=== PATIENT | male | born 1955 | race Hispanic/Latino ===

== ENCOUNTER 2020-04-16 20:00 | Inpatient (IN) | payer OTHER, SELFPAY ==
[2020-04-16] MEDS ORDERED: ONDANSETRON 4 MG/2 ML VIAL ONE ×2 (20:54→23:31)
[2020-04-16 20:56] LABS: Absolute Lymphocytes (CBC) 0.6 K/uL (0.7-4.9); Basophils % 0.4 % (0-1.3); Hematocrit 36.7 % (39.6-49.0); Lymphocytes % 10.7 % (15.3-44.8); MPV 8.7 fL (7.6-11.3); RBC Red Blood Cell Count 3.29 M/uL (4.33-5.43)
[2020-04-16 20:57] LABS: Protime INR 1.02
[2020-04-16 21:10] LABS: ALT/SGPT 89 U/L (12-78); AST/SGOT 83 U/L (15-37); Albumin 3.3 g/dL (3.4-5.0); Alkaline Phosphatase 161 U/L (45-117); BUN Blood Urea Nitrogen 9 mg/dL (7-18); Bicarbonate 20 mmol/L (21-32); Bilirubin Direct 0.7 mg/dL (0-0.2); Bilirubin Total 1.5 mg/dL (0.2-1.0); Glucose Level 80 mg/dL (74-106); Lipase 566 U/L (73-393); Magnesium 2.2 mg/dL (1.8-2.4); NT PRO-BNP 590 pg/mL (<125); Potassium 3.6 mmol/L (3.5-5.1); Protein, Total 7.6 g/dL (6.4-8.2); Sodium Level 131 mmol/L (136-145); Troponin (Emerg Dept Use Only) < 0.02 ng/mL (0.0-0.045)
--- NOTE | 2020-04-16 21:19 | RAD REPORT ---
EXAM DESCRIPTION: CT - Head Brain Wo Cont - 04/16/2020 9:12 pm CLINICAL HISTORY: AMS COMPARISON: No comparisons TECHNIQUE: Axial 5 mm thick images of the head were obtained without IV contrast. All CT scans are performed using dose optimization technique as appropriate and may include automated exposure control or mA/KV adjustment according to patient size. FINDINGS: No intracranial hemorrhage, mass, edema or shift of mid-line structures. No acute infarcti on changes seen. Atrophy changes are present prominent for the patient's age. Chronic ischemic change s are also seen. Ventricles are in proportion to volume loss. No cortical edema or sulcal effacement identified. Mastoid air cells and visualized portions of the paranasal sinuses are clear. No acute bony findings. IMPRESSION: No hemorrhage, mass or acute intracranial finding identifiable. Patient has atrophy and chronic ischemic changes that are advanced for age. Chronic ischemic change c an mask nonhemorrhagic CVA.
--- NOTE | 2020-04-16 21:20 | RAD REPORT ---
EXAM DESCRIPTION: RAD - Chest Single View - 04/16/2020 8:58 pm CLINICAL HISTORY: AMS, weakness, shortness of breath COMPARISON: August 2014 TECHNIQUE: AP portable chest image was obtained 04/16/2020 8:58 pm . FINDINGS: Lungs are clear. Heart and vasculature are normal. No measurable pleural effusion and no p neumothorax. No acute bony abnormality seen. No acute aortic findings suspected. IMPRESSION: No acute cardiopulmonary process. No significant change from comparison.
[2020-04-16 21:33] LABS: Blood Morphology Comment NOTED (NOT SEEN); Macrocytosis 1+; Platelet Estimate DECR; White Blood Cell Scan OK
[2020-04-16] MEDS ORDERED: PROMETHAZINE INJ 25 MG/ML AMP ONE (21:43)
[2020-04-16] MEDS ORDERED: NA CHLORIDE 0.9% 1,000 ML ONE ×2 (22:00→23:32)
[2020-04-16 22:10] LABS: Barbiturates NEGATIVE (NEGATIVE); Benzodiazepines NEGATIVE (NEGATIVE); Cocaine NEGATIVE (NEGATIVE); METHAMPHETAM NEGATIVE (NEGATIVE); Methadone NEGATIVE (NEGATIVE); Opiates NEGATIVE (NEGATIVE); Phencyclidine NEGATIVE (NEGATIVE); THC Cannibis NEGATIVE (NEGATIVE)
[2020-04-16 22:19] LABS: Urine Blood NEGATIVE (NEG); Urine Glucose NEGATIVE (NEG); Urine Protein NEGATIVE (NEG); Urine pH 6.5 (5.0-7.0)
[2020-04-16] MEDS ORDERED: LORazepam 2 MG/ML VIAL ONE (23:31)
[2020-04-16] MEDS ORDERED: THIAMINE 200 MG/2 ML INJ ONE (23:33)
[2020-04-16] MEDS ORDERED: MULTIVITAMINS 10 ML VIAL (INJ) IV ONE (23:33)
[2020-04-16] MEDS ORDERED: FOLIC ACID 5 MG/ML VIAL ONE (23:34)
--- NOTE | 2020-04-16 23:41 | ER ---
Nurse's Notes [facility] Name: Nikko Jaeger Age: 64 yrs Sex: Male : 1955 Arrival Date: 04/16/2020 Time: 20:03 Bed 5 Private MD: Diagnosis: Altered Mental Status;Alcohol Withdrawal Presentation: 04/16 20:20 Chief complaint: Sister: Noticed Sunday to come pick him up to bring him to the [employer] store. While he was walking he is holding onto the ash or to something. He was weak and a little disoriented. Yesterday, it has gotten worse, he is weaker, drowsy and very disoriented. He forgot that our mom and brother have been for years. He seems to have blurring of vision too. Orientation x 2 , person and place. Chief complaint: Patient states: I just feel very tired and very weak. Coronavirus screen: Client denies travel out of the [place] in the last 14 days. At this time, the client does not indicate any symptoms associated with coronavirus-19. Ebola Screen: Patient negative for fever greater than or equal to 101.5 degrees Fahrenheit, and additional compatible Ebola Virus Disease symptoms Patient denies exposure to infectious person. Patient denies travel to an Ebola-affected area in the 21 days before illness onset. No symptoms or risks identified at this time. Initial Sepsis Screen: Does the patient meet any 2 criteria? No. Patient's initial sepsis screen is negative. Does the patient have a suspected source of infection? No. Patient's initial sepsis screen is negative. Risk Assessment: Do you want to hurt yourself or someone else? Patient reports no desire to harm self or others. Onset of symptoms was April 14, 2020. 20:20 Method Of Arrival: Wheelchair ca1 20:20 Acuity: NELLIE 3 ca1 Triage Assessment: 20:25 General: Appears slender, unkempt, Behavior is drowsy. Pain: Denies pain. ca1 Historical: - Allergies: 20:25 No Known Allergies; ca1 - Home Meds: 20:25 None [Active]; ca1 - PMHx: 20:25 None; ca1 - PSHx: 20:25 None; ca1 - Immunization history:: Adult Immunizations not up to date. - Social history:: Smoking status: Patient reports the use of cigarette tobacco products, smokes one pack cigarettes per day. Screenin:56 Abuse screen: Denies threats or abuse. Nutritional screening: No deficits noted. ea Tuberculosis screening: No symptoms or risk factors identified. Fall Risk IV access (20 points). Assessment: 20:54 General: Appears uncomfortable, Behavior is appropriate for age. Pain: Denies pain. ea Neuro: Level of Consciousness is awake, alert, Oriented to person. Cardiovascular: Patient's skin is warm and dry. Respiratory: Airway is patent Respiratory effort is even, unlabored, Respiratory pattern is regular, symmetrical. GI: Parent/caregiver reports the patient having sister reports he has been having episodes of vomiting. Derm: Skin is thin, Skin is dry, Skin temperature is warm. 21:08 Reassessment: Pt taken cat scan. ea 21:45 Reassessment: Patient and/or family updated on plan of care and expected duration. Pain ea level reassessed. Pt returned from CT. Pt remains awake, alert and disoriented. Respirations even and unlabored, chest expansions even and symmetrical. 22:28 Reassessment: Patient and/or family updated on plan of care and expected duration. Pain ea level reassessed. Pt resting with eyes closed respirations even and unlabored. Chest expansions even and symmetrical. Sister at bedside. 23:38 Reassessment: Patient and/or family updated on plan of care and expected duration. Pain ea level reassessed. Pt resting with eyes closed, respirations even and unlabored, chest expansions even and unlabored. 23:52 Reassessment: Niyah (sister) [phone]. ea 04/17 00:50 Reassessment: Patient and/or family updated on plan of care and expected duration. Pain ea level reassessed. Pt resting with eyes closed, respirations even and unlabored. Chest expansions even and unlabored. 01:19 Reassessment: Report given to receiving nurse on second floor. ea 01:30 Reassessment: Patient and/or family updated on plan of care and expected duration. Pain ea level reassessed. Pt resting with eyes closed, respirations even and unlabored. Chest expansions even and symmetrical. Pt admitted to second floor, left ED via stretcher per tech. Pt tolerating well. Vital Signs: 04/16 20:20 BP 177 / 96; Pulse 71; Resp 15 S; Temp 97(TE); Pulse Ox 100% on R/A; Weight 63.5 kg ca1 (R); Height 5 ft. 6 in. (167.64 cm) (R); 22:29 BP 147 / 100; Pulse 71; Resp 18; Pulse Ox 100% ; ea 23:09 BP 137 / 98; Pulse 67; Resp 18; Pulse Ox 99% on R/A; ea 04/17 00:51 BP 157 / 88; Pulse 71; Resp 18; Pulse Ox 100% ; ea 04/16 20:20 Body Mass Index 22.60 (63.50 kg, 167.64 cm) ca1 ED Course: 04/16 20:03 Patient arrived in ED. cf2 20:25 Triage completed. ca1 20:26 Arm band placed on right wrist. ca1 20:28 Chema Dawn MD is Attending Physician. mh7 20:42 Faith Townsend RN is Primary Nurse. ea 20:55 Patient has correct armband on for positive identification. Placed in gown. Bed in low ea position. Call light in reach. Side rails up X2. Adult w/ patient. 20:55 EKG done, by ED staff, reviewed by Chema Dawn MD. Inserted saline lock: 20 gauge in ds4 right forearm, using aseptic technique. Blood collected. 21:41 Straight cath inserted, using sterile technique, 16 Fr. Specimen obtained. ds4 21:54 UDS Sent. ds4 23:39 Yordy Hughes is Hospitalizing Provider. 7 23:47 No provider procedures requiring assistance completed. Patient admitted, IV remains in ea place. Administered Medications: 20:44 Drug: Zofran (Ondansetron) 4 mg Route: IVP; Site: right antecubital; ea 22:00 Follow up: Response: No adverse reaction ea 21:40 Drug: Phenergan 12.5 mg Route: IVP; Site: right antecubital; ea 23:00 Follow up: Response: No adverse reaction ea 22:14 Drug: NS 0.9% 1000 ml Route: IV; Rate: 1000 ml; Site: right antecubital; ea 04/17 00:43 Follow up: Response: No adverse reaction; IV Status: Completed infusion; IV Intake: ea 1000ml 04/16 23:35 Drug: Banana Bag - (NS 0.9% 1000 ml, foLIC Acid 1 mg, Thiamine 100 mg, Multivitamin 1 ea amp) Route: IV; Rate: calculated rate; Site: right antecubital; 04/17 00:39 Follow up: Response: No adverse reaction; IV Status: Infusion continued upon admission ea 04/16 23:35 CANCELLED (Other Intervention Used): Ativan 1 mg IVP once 23:36 Drug: Zofran (Ondansetron) 4 mg Route: IVP; Site: right antecubital; ea 04/17 00:39 Follow up: Response: No adverse reaction ea 04/16 23:36 Drug: Ativan 2 mg Route: IVP; Site: right antecubital; ea 04/17 00:40 Follow up: Response: No adverse reaction ea Intake: 00:43 IV: 1000ml; Total: 1000ml. ea Outcome: 04/16 23:40 Decision to Hospitalize by Provider. mh7 04/17 00:38 Condition: stable ea Instructed on the need for admit. 01:18 Admitted to Med/surg accompanied by tech, room 231, with chart, Report called to ea Receiving nurse on second floor 01:27 Patient left the ED. rv Signatures: Kranthi Mendoza ds4 Faith Townsend RN Abad Ortiz ea, RN RN rv Acob, Cheryl RN Paz Collins2 Chema Dawn MD MD 7
--- NOTE | 2020-04-16 23:41 | EDPHYS ---
Physician Documentation [facility] Name: Nikko Jaeger Age: 64 yrs Sex: Male : 1955 Arrival Date: 04/16/2020 Time: 20:03 Bed 5 Private MD: ED Physician Chema Dawn HPI: 04/16 21:36 This 64 yrs old Male presents to ER via Wheelchair with complaints of Altered mh7 Mental Status, Vision Problem, Off Balance. 21:36 The patient presents with. mh7 21:36 The patient presents with confusion, disorientation, to time. Onset: The 7 symptoms/episode began/occurred 2 day(s) ago. Possible causes: unknown. Associated signs and symptoms: Pertinent positives: blurred vision, confusion, nausea, weakness, Pertinent negatives: abdominal pain, agitation, chest pain, combativeness, diaphoresis, diarrhea, dizziness, headache, lightheadedness, numbness, palpitations, seizure, shortness of breath, tingling, vertigo, vomiting. 21:38 Current symptoms: In the emergency department the patient's symptoms are unchanged from [facility] the initial presentation. Patient's baseline: Neuro: alert and fully oriented, Motor: no deficits, Ambulation: walks without assistance, Speech: normal. Historical: - Allergies: 20:25 No Known Allergies; ca1 - Home Meds: 20:25 None [Active]; ca1 - PMHx: 20:25 None; ca1 - PSHx: 20:25 None; ca1 - Immunization history:: Adult Immunizations not up to date. - Social history:: Smoking status: Patient reports the use of cigarette tobacco products, smokes one pack cigarettes per day. ROS: 21:38 Constitutional: Negative for fever, chills, and weight loss, ENT: Negative for injury, mh7 pain, and discharge, Neck: Negative for injury, pain, and swelling, Cardiovascular: Negative for chest pain, palpitations, and edema, Respiratory: Negative for shortness of breath, cough, wheezing, and pleuritic chest pain, Back: Negative for injury and pain, : Negative for injury, bleeding, discharge, and swelling, MS/Extremity: Negative for injury and deformity, Skin: Negative for injury, rash, and discoloration, Psych: Negative for depression, anxiety, suicide ideation, homicidal ideation, and hallucinations, Allergy/Immunology: Negative for hives, rash, and allergies, Endocrine: Negative for neck swelling, polydipsia, polyuria, polyphagia, and marked weight changes, Hematologic/Lymphatic: Negative for swollen nodes, abnormal bleeding, and unusual bruising. Exam: 21:38 Head/Face: Normocephalic, atraumatic. mh7 21:38 ENT: Nares patent. No nasal discharge, no septal abnormalities noted. Tympanic membranes are normal and external auditory canals are clear. Oropharynx with no redness, swelling, or masses, exudates, or evidence of obstruction, uvula midline. Mucous membranes moist. Neck: Trachea midline, no thyromegaly or masses palpated, and no cervical lymphadenopathy. Supple, full range of motion without nuchal rigidity, or vertebral point tenderness. No Meningismus. Chest/axilla: Normal chest wall appearance and motion. Nontender with no deformity. No lesions are appreciated. Cardiovascular: Regular rate and rhythm with a normal S1 and S2. No gallops, murmurs, or rubs. Normal PMI, no JVD. No pulse deficits. Respiratory: Lungs have equal breath sounds bilaterally, clear to auscultation and percussion. No rales, rhonchi or wheezes noted. No increased work of breathing, no retractions or nasal flaring. 21:38 Back: No spinal tenderness. No costovertebral tenderness. Full range of motion. 21:38 Skin: Warm, dry with normal turgor. Normal color with no rashes, no lesions, and no evidence of cellulitis. MS/ Extremity: Pulses equal, no cyanosis. Neurovascular intact. Full, normal range of motion. 21:38 Constitutional: The patient appears alert, awake, uncomfortable. 21:38 Eyes: Periorbital structures: appear normal, Pupils: pinpoint, bilaterally, Extraocular movements: intact throughout, Conjunctiva: normal, Corneas: are normal, Sclera: no appreciated abnormality, Lids and lashes: appear normal. 21:38 Abdomen/GI: Inspection: abdomen appears normal, Bowel sounds: normal, in all quadrants, Palpation: mild abdominal tenderness, in all quadrants, Rectal exam: the exam is deferred, because of patient request, Indicators: McBurney's point is not tender, Jansen's sign is negative, Rovsing's sign is negative, Obturator sign is negative, Psoas sign is negative, Liver: no appreciated palpable abnormalities, Hernia: not appreciated. 21:38 Skin: 21:38 Neuro: Orientation: to person, place, situation, Mentation: sleepy, Memory: is normal, Cranial nerves: grossly normal, Cerebellar function: is grossly normal, Motor: is normal, Sensation: is normal, Gait: not tested. seizure activity, is not displayed by the patient, Abnormal movements: there are no abnormal movements. 21:38 Psych: Behavior/mood is pleasant, cooperative, Affect is calm, Oriented to person, place, Patient has no thoughts/intents to harm self or others. Judgement / Insight is normal. Memory is normal. Delusions/hallucinations are not present. Vital Signs: 20:20 BP 177 / 96; Pulse 71; Resp 15 S; Temp 97(TE); Pulse Ox 100% on R/A; Weight 63.5 kg ca1 (R); Height 5 ft. 6 in. (167.64 cm) (R); 22:29 BP 147 / 100; Pulse 71; Resp 18; Pulse Ox 100% ; ea 23:09 BP 137 / 98; Pulse 67; Resp 18; Pulse Ox 99% on R/A; ea 04/17 00:51 BP 157 / 88; Pulse 71; Resp 18; Pulse Ox 100% ; ea 04/16 20:20 Body Mass Index 22.60 (63.50 kg, 167.64 cm) ca1 MDM: 04/16 20:40 Patient medically screened. [facility] 23:38 Differential Diagnosis: CVA, electrolyte abnormality, alcohol intoxication, 7 hypoglycemia, intracranial bleed, overdose, pneumonia, sepsis, UTI, volume depletion, Alcohol withdrawal. Data reviewed: vital signs, nurses notes, lab test result(s), cardiac enzymes, CBC, drug level(s), electrolytes, urinalysis, urine drug screen, EKG, radiologic studies, CT scan, plain films. Data interpreted: Pulse oximetry: on room air is 99 %. Interpretation: normal. Counseling: I had a detailed discussion with the patient and/or guardian regarding: the historical points, exam findings, and any diagnostic results supporting the discharge/admit diagnosis, the presence of at least one elevated blood pressure reading (>120/80) during this emergency department visit, lab results, radiology results, the need for further work-up and treatment in the hospital. Response to treatment: the patient's symptoms have mildly improved after treatment. 04/16 20:42 Order name: Basic Metabolic Panel [facility] 04/16 20:42 Order name: CBC with Diff [facility] 04/16 20:42 Order name: LFT's [facility] 04/16 20:42 Order name: Magnesium [facility] 04/16 20:42 Order name: NT PRO-BNP [facility] 04/16 20:42 Order name: PT-INR [facility] 04/16 20:42 Order name: Troponin (emerg Dept Use Only) [facility] 04/16 20:42 Order name: UDS [facility] 04/16 20:42 Order name: ETOH Level [facility] 04/16 20:42 Order name: Lipase [facility] 04/16 20:43 Order name: Acetaminophen [facility] 04/16 20:43 Order name: Salicylate [facility] 04/16 21:11 Order name: Basic Metabolic Panel; Complete Time: 21:34 EDMS 04/16 23:36 Interpretation: GLUC 80. [facility] 04/16 21:11 Order name: Liver (Hepatic) Function; Complete Time: 21:34 EDMS 04/16 20:42 Order name: XRAY Chest (1 view) [facility] 04/16 21:11 Order name: Troponin (Emerg Dept Use Only); Complete Time: 21:34 EDMS 04/16 21:11 Order name: NT PRO-BNP; Complete Time: 21:34 EDMS 04/16 21:11 Order name: Acetaminophen Level; Complete Time: 21:34 EDMS 04/16 21:11 Order name: Magnesium; Complete Time: 21:34 EDMS 04/16 21:11 Order name: Lipase; Complete Time: 21:34 EDMS 04/16 21:17 Order name: Protime (+INR); Complete Time: 21:34 EDMS 04/16 21:20 Order name: CBC with Automated Diff; Complete Time: 21:34 EDMS 04/16 21:33 Order name: CBC Smear Scan; Complete Time: 21:34 EDMS 04/16 21:35 Order name: AMMONIA [facility] 04/16 21:44 Order name: Alcohol Serum/Plasma; Complete Time: 22:28 EDMS 04/16 21:53 Order name: Urine Dipstick--Ancillary (enter results) 4 04/16 22:05 Order name: Salicylates Level; Complete Time: 22:28 [facility] 04/16 22:10 Order name: Urine Drug Screen; Complete Time: 22:28 [facility] 04/16 22:19 Order name: Urine Dipstick-Ancillary; Complete Time: 22:28 [facility] 04/16 22:48 Order name: Ammonia; Complete Time: 22:59 [facility] 04/16 20:42 Order name: EKG; Complete Time: 20:43 [facility] 04/16 20:42 Order name: Cardiac monitoring; Complete Time: 20:53 [facility] 04/16 20:42 Order name: EKG - Nurse/Tech; Complete Time: 20:53 [facility] 04/16 20:42 Order name: IV Saline Lock; Complete Time: 20:53 [facility] 04/16 20:42 Order name: Labs collected and sent; Complete Time: 20:53 [facility] 04/16 20:42 Order name: O2 Per Protocol; Complete Time: 20:53 [facility] 04/16 20:42 Order name: O2 Sat Monitoring; Complete Time: 20:53 [facility] 04/16 20:42 Order name: Urine Dipstick-Ancillary (obtain specimen); Complete Time: 21:53 [facility] 04/16 20:42 Order name: CT Head Brain wo Cont [facility] 04/16 21:21 Order name: CT; Complete Time: 21:34 [facility] 04/16 21:21 Order name: RAD; Complete Time: 21:34 [facility] 04/16 21:35 Order name: CT Abd/Pelvis - IV Contrast Only 7 Administered Medications: 20:44 Drug: Zofran (Ondansetron) 4 mg Route: IVP; Site: right antecubital; ea 22:00 Follow up: Response: No adverse reaction ea 21:40 Drug: Phenergan 12.5 mg Route: IVP; Site: right antecubital; ea 23:00 Follow up: Response: No adverse reaction ea 22:14 Drug: NS 0.9% 1000 ml Route: IV; Rate: 1000 ml; Site: right antecubital; ea 04/17 00:43 Follow up: Response: No adverse reaction; IV Status: Completed infusion; IV Intake: ea 1000ml 04/16 23:35 Drug: Banana Bag - (NS 0.9% 1000 ml, foLIC Acid 1 mg, Thiamine 100 mg, Multivitamin 1 ea amp) Route: IV; Rate: calculated rate; Site: right antecubital; 04/17 00:39 Follow up: Response: No adverse reaction; IV Status: Infusion continued upon admission ea 04/16 23:35 CANCELLED (Other Intervention Used): Ativan 1 mg IVP once ea 23:36 Drug: Zofran (Ondansetron) 4 mg Route: IVP; Site: right antecubital; ea 04/17 00:39 Follow up: Response: No adverse reaction ea 04/16 23:36 Drug: Ativan 2 mg Route: IVP; Site: right antecubital; ea 04/17 00:40 Follow up: Response: No adverse reaction Disposition: 06:23 Co-signature as Attending Physician, Chema Dawn MD. mh7 Disposition: 04/16/20 23:40 Hospitalization ordered by Yordy Hughes for Inpatient Admission. Preliminary diagnosis are Altered Mental Status, Alcohol Withdrawal. - Bed requested for Telemetry/MedSurg (Inpatient). - Status is Inpatient Admission. rv - Condition is Stable. - Problem is new. - Symptoms have improved. Signatures: Dispatcher [employer] Leonor Altamiraon RN RN Faith Townsend RN RN ea Vicente, Ronaldo, RN RN Leyla Parry RN RN [facility] Chema Dawn MD MD mh7 Corrections: (The following items were deleted from the chart) 04/16 23:35 23:23 Ativan 1 mg IVP once ordered. [facility] 23:35 23:35 Ativan 1 mg IVP once ordered. [facility] 04/17 00:52 04/16 23:40 Hospitalization Ordered by Yordy Hughes for Inpatient Admission. cg Preliminary diagnosis is Altered Mental Status; Alcohol Withdrawal. Bed requested for Telemetry/MedSurg (Inpatient). Status is Inpatient Admission. Condition is Stable. Problem is new. Symptoms have improved. [facility] 04/17 00:53 00:52 04/16/2020 23:40 Hospitalization Ordered by Yordy Hughes for Inpatient cg Admission. Preliminary diagnosis is Altered Mental Status; Alcohol Withdrawal. Bed requested for Telemetry/MedSurg (Inpatient). Status is Inpatient Admission. Condition is Stable. Problem is new. Symptoms have improved. cg 01:27 00:53 04/16/2020 23:40 Hospitalization Ordered by Yordy Hughes for Inpatient rv Admission. Preliminary diagnosis is Altered Mental Status; Alcohol Withdrawal. Bed requested for Telemetry/MedSurg (Inpatient). Status is Inpatient Admission. Condition is Stable. Problem is new. Symptoms have improved. cg
--- NOTE | 2020-04-17 00:29 | P.HP ---
Certification for Inpatient Patient admitted to: Inpatient With expected LOS: >2 Midnights Practitioner: I am a practitioner with admitting privileges, knowledge of patient current condition, hospital course, and medical plan of care. Services: Services provided to patient in accordance with Admission requirements found in Title 42 Section 412.3 of the Code of Federal Regulations Patient History Date of Service: 04/17/20 Reason for admission: Hallucinations History of Present Illness: 64-year-old gentleman who is a known alcoholic was brought to the emergency department by the sister with her reports of confusion, visual impairment and hallucinations. According to the sister patient drinks alcohol every day, but over the past couple of days have not had access to alcohol due to difficulty ambulating and visual problems. She noted patient was more confused today, and hallucinating about seeing his mum. Sister brought him to the emergency department for evaluation. She also reports that she noted a squint in his eyes and patient have had difficulty reaching out for objects. His alcohol level in the ED is 14. CT head shows no acute change. EKG demonstrated sinus rhythm. He has mild hyponatremia, elevated lipase and elevated liver enzymes. Patient had an episode of vomiting during my examination in the ED. Patient is admitted for further management of alcohol withdrawal. Allergies No Known Allergies Allergy (Verified 08/05/14 14:57) Home Medications: Doxylamine Succinate [Sleep Aid] 25 mg PO DAILY 08/05/14 Hydrocodone 7.5/APAP 325 [[place] 7.5/325 mg*] 1 tab PO Q4H PRN #50 tab 08/15/14 Iron/FA/Vit B-Com W/C [Hemocyte Plus*] 1 tab PO DAILY WITH BREAKFAST #30 tab 08/15/14 Rivaroxaban [Xarelto*] 10 mg PO DAILY #25 tablet 08/16/14 - Past Medical/Surgical History Diabetic: No -: Chronic alcoholism - Family History Mother -: Heart disease, Hypertension, Diabetes - Social History Alcohol use: Yes CD- Drugs: No Caffeine use: Yes Review of Systems is unable to be obtained (Due to altered mental status.) Physical Examination - Physical Exam General: Other (Somnolent) HEENT: Normocephalic, Mucous membr. moist/pink, Sclerae nonicteric Neck: Supple, JVD not distended Respiratory: Clear to auscultation bilaterally, Normal air movement Cardiovascular: No edema, Regular rate/rhythm, Normal S1 S2 Gastrointestinal: Normal bowel sounds, Soft and benign, No tenderness Musculoskeletal: No swelling, No erythema Integumentary: No rashes, No tenderness/swelling - Studies Laboratory Data (last 24 hrs) 04/16/20 20:37: PT 12.0, INR 1.02 04/16/20 20:37: WBC 5.9, Hgb 12.7 L, Hct 36.7 L, Plt Count 144 L 04/16/20 20:37: Sodium 131 L, Potassium 3.6, BUN 9, Creatinine 0.75, Glucose 80, Magnesium 2.2, Total Bilirubin 1.5 H, AST 83 H, ALT 89 H, Alkaline Phosphatase 161 H, Lipase 566 H Assessment and Plan - Problems (Diagnosis) (1) Alcohol withdrawal syndrome Current Visit: Yes Status: Acute (2) Wernicke encephalopathy syndrome Current Visit: Yes Status: Acute (3) Acute pancreatitis Current Visit: Yes Status: Acute - Plan Admit to the medical floor. Supportive measures with IV hydration, antiemetics. Initiate CIWA. Replete electrolytes-normal saline for hyponatremia. IV thiamine. Ataxia and a squint could be secondary to Wernicke syndrome. Obtain MRI of the brain to assess for acute CVA. - Advance Directives Does patient have a Living Will: No Does patient have a Durable POA for Healthcare: No
[2020-04-17] MEDS: LORazepam 2 MG/ML VIAL IV SCH ×6 (01:33→21:34)
[2020-04-17] MEDS ORDERED: FLUMAZENIL 0.1 MG/ML (5 mL VIAL) IV PRN (01:33)
[2020-04-17] MEDS ORDERED: ONDANSETRON 4 MG/2 ML VIAL IV PRN (01:33)
[2020-04-17] MEDS ORDERED: LORazepam 2 MG/ML VIAL IV PRN (01:33)
[2020-04-17 02:07] VITALS: BMI 18.6
[2020-04-17 02:57] LABS: Phosphorus 2.8 mg/dL (2.5-4.9)
--- NOTE | 2020-04-17 07:18 | EKG ---
Test Date: 2020-04-16 Test Time: 20:47:24 Process Checker: ANA ROSA MEASUREMENT RESULTS: Intervals: Rate: 69 [place]: 146 QRSD: 76 QT: 490 QTc: 525 [place]: P: 45 [place]: 146 QRS: 53 T: 33 INTERPRETIVE STATEMENTS: Normal sinus rhythm Prolonged QT Abnormal ECG Compared to ECG 03/05/2001 14:49:00 Prolonged QT interval now present Left ventricular hypertrophy no longer present Electronically Signed On 04-17-20 07:17:42 CDT by Harman Hoff
--- NOTE | 2020-04-17 09:01 | P.PN ---
Date of Service: 04/17/20 Patient seen and examined. He is a little bit more awake than when I saw him in the ED. Nurse reports some agitation this morning and had to be him a dose of Ativan. Continue IV hydration, IV thiamine and CIWA protocol.
[2020-04-17] MEDS: FOLIC ACID 1 MG, MULTIVITAMINS INJ 10 ML, THIAMINE HCL 100 MG in NA CHLORIDE 0.9% 1,000 ML IV SCH (09:47)
[2020-04-17] MEDS: ENOXAPARIN 40 MG/0.4 ML SQ SCH (09:47)
[2020-04-17] MEDS ORDERED: D50W 25 GM/50 ML SYRINGE/VIAL IV PRN ×2 (12:40→12:41)
[2020-04-17] MEDS ORDERED: GLUCAGON 1 MG/VIAL IV PRN (12:41)
[2020-04-17] MEDS ORDERED: D50W 25 GM/50 ML SYRINGE/VIAL IV ONE (12:57)
[2020-04-17] MEDS: D5 0.45 NS 1,000 ML IV SCH (18:12)
[2020-04-18] MEDS: LORazepam 2 MG/ML VIAL IV SCH ×2 (01:33→06:02)
[2020-04-18 05:25] LABS: Absolute Lymphocytes (CBC) 0.7 K/uL (0.7-4.9); Basophils % 0.3 % (0-1.3); Hematocrit 34.4 % (39.6-49.0); MPV 8.9 fL (7.6-11.3); RBC Red Blood Cell Count 3.08 M/uL (4.33-5.43)
[2020-04-18 05:45] LABS: ALT/SGPT 61 U/L (12-78); AST/SGOT 51 U/L (15-37); Albumin 2.6 g/dL (3.4-5.0); Alkaline Phosphatase 122 U/L (45-117); BUN Blood Urea Nitrogen 6 mg/dL (7-18); Bicarbonate 24 mmol/L (21-32); Bilirubin Total 1.3 mg/dL (0.2-1.0); Glucose Level 96 mg/dL (74-106); HDL Cholesterol 74 mg/dL (40-60); LDL Cholesterol, Calculated 51 (<130); Phosphorus 2.2 mg/dL (2.5-4.9); Protein, Total 6.1 g/dL (6.4-8.2); Sodium Level 134 mmol/L (136-145)
[2020-04-18 05:51] LABS: Potassium 2.8 mmol/L (3.5-5.1)
[2020-04-18] MEDS: D5 0.45 NS 1,000 ML IV SCH ×3 (06:01→23:35)
[2020-04-18] MEDS: KCL 20 MEQ/100 mL IVPB 20 MEQ/100 ML BAG IV SCH ×3 (06:15→23:34)
[2020-04-18] MEDS: ENOXAPARIN 40 MG/0.4 ML SQ SCH (07:37)
[2020-04-18] MEDS ORDERED: LORazepam 2 MG/ML VIAL IV SCH (08:03)
--- NOTE | 2020-04-18 08:09 | P.PN ---
Subjective Date of Service: 04/18/20 Chief Complaint: Hallucinations Subjective: No new changes Patient remain somnolent. He has been getting Ativan for alcohol withdrawal. Physical Examination - Vital Signs Temperature: 96.9 F Blood Pressure: 146/70 Pulse: 58 Respirations: 20 Pulse Ox (%): 98 - Physical Exam General: In no apparent distress, Other (Somnolent) HEENT: PERRLA, EOMI, Sclerae nonicteric Neck: Supple Respiratory: Clear to auscultation bilaterally, Normal air movement Cardiovascular: No edema, Regular rate/rhythm, Normal S1 S2 Gastrointestinal: Normal bowel sounds, Soft and benign, No tenderness Musculoskeletal: No swelling, No erythema Neurological: Other (Nonfocal) Assessment And Plan - Current Problems (Diagnosis) (1) Alcohol withdrawal syndrome Current Visit: Yes Status: Acute (2) Wernicke encephalopathy syndrome Current Visit: Yes Status: Acute (3) Acute pancreatitis Current Visit: Yes Status: Acute - Plan Continue supportive measures with IV hydration, antiemetics. CIWA. Continue normal saline for hyponatremia. IV thiamine daily for 2 days. Reduce Ativan dose due to somnolence Ataxia and a squint could be secondary to Wernicke syndrome. Obtain MRI of the brain to assess for acute CVA in am.
[2020-04-18] MEDS ORDERED: POTASSIUM CL 40 MEQ in NA CHLORIDE 0.9% 500 ML IV SCH (09:00)
[2020-04-18] MEDS ORDERED: POTASSIUM PHOS IN 0.9 % NACL 15 MMOL/250 ML BAG IV ONE (10:00)
[2020-04-18] MEDS: FOLIC ACID 1 MG, MULTIVITAMINS INJ 10 ML, THIAMINE HCL 100 MG in NA CHLORIDE 0.9% 1,000 ML IV SCH (12:01)
[2020-04-18 20:58] LABS: Phosphorus 2.2 mg/dL (2.5-4.9); Potassium 3.3 mmol/L (3.5-5.1)
[2020-04-18] MEDS: LORazepam 2 MG/ML VIAL IV PRN (23:37)
[2020-04-19] MEDS ORDERED: LORazepam 2 MG/ML VIAL IV SCH ×2 (01:00)
[2020-04-19] MEDS: KCL 20 MEQ/100 mL IVPB 20 MEQ/100 ML BAG IV SCH (02:38)
[2020-04-19] MEDS: LORazepam 2 MG/ML VIAL IV PRN (03:44)
[2020-04-19 04:47] LABS: BUN Blood Urea Nitrogen 2 mg/dL (7-18); Bicarbonate 24 mmol/L (21-32); Glucose Level 101 mg/dL (74-106); Phosphorus 1.7 mg/dL (2.5-4.9); Potassium 3.3 mmol/L (3.5-5.1); Sodium Level 137 mmol/L (136-145)
[2020-04-19] MEDS ORDERED: POTASSIUM PHOS IN 0.9 % NACL 15 MMOL/250 ML BAG IV ONE (07:30)
[2020-04-19] MEDS: ENOXAPARIN 40 MG/0.4 ML SQ SCH (08:17)
[2020-04-19] MEDS: FOLIC ACID 1 MG, MULTIVITAMINS INJ 10 ML, THIAMINE HCL 100 MG in NA CHLORIDE 0.9% 1,000 ML IV SCH (09:00)
--- NOTE | 2020-04-19 12:40 | RAD REPORT ---
EXAM DESCRIPTION: CT - Abdomen Pelvis W Contrast - 04/16/2020 10:06 pm CLINICAL HISTORY: NAUSEA / VOMITING COMPARISON: None. TECHNIQUE: CT ABDOMEN PELVIS WITH IV CONTRAST on 04/16/2020 9:35 PM CDT This exam was performed according to our departmental dose-optimization program, which includes autom ated exposure control, adjustment of the mA and/or kV according to patient size and/or use of iterati ve reconstruction technique. FINDINGS: Lower lungs are clear. Abdomen: The liver is normal in appearance. There is no biliary dilatation. Gallbladder is normal in appearance. The pancreas and spleen are normal in appearance. The adrenal glands and kidneys are unre markable. Abdominal aorta is normal in course and caliber without aneurysm. There is no free air. There is no r etroperitoneal adenopathy. Pelvis: There is no bowel obstruction. Urinary bladder is unremarkable. There is no free fluid. Appen sony is not well seen. Skeleton: There are no acute osseous findings. No suspicious bony lesions. IMPRESSION: No definite acute process. Electronically signed by: Quirino Mason MD 04/16/2020 10:24 PM CDT Due to temporary technical issues with the PACS/Fluency reporting system, reports are being signed by the in house radiologist without review as a courtesy to ensure prompt reporting. The interpreting r adiologist is fully responsible for the content of the report.
--- NOTE | 2020-04-19 12:58 | P.PN ---
Subjective Date of Service: 04/19/20 Primary Care Provider: unknown Chief Complaint: Hallucinations Subjective: Other (Patient stable this time.) Physical Examination - Vital Signs Temperature: 97.1 F Blood Pressure: 139/67 Pulse: 59 Respirations: 18 Pulse Ox (%): 97 - Physical Exam General: Alert, Cooperative HEENT: Atraumatic Neck: Supple Respiratory: Clear to auscultation bilaterally, Normal air movement Cardiovascular: Normal pulses, Regular rate/rhythm Musculoskeletal: Other (Muscle wasting to the upper/lower extremities) Neurological: Normal speech, Normal strength at 5/5 x4 extr, Normal tone, Normal affect - Studies Medications List Reviewed: Yes Assessment & Plan Discharge Plan: Home Plan to discharge in: 48 Hours Physician Review Additional Text: Impression: Ataxia likely related to Alcohol withdrawal syndrome complicated with suspected worn acute encephalopathy Acute pancreatitis Moderate protein calorie malnutrition Plan: Ataxia likely related to Alcohol withdrawal syndrome complicated with suspected Wernicke encephalopathy: Continue with Ativan as needed. Continue monitor closely. Will have physical therapy and occupational therapy evaluate ambulation. Continue to replace electrolytes. Will discuss with Neurology. MRI pending to further evaluate. Patient will need to be able to ambulate prior to discharge. Patient with high risk fall. Will discuss with physical therapy. Await recommendations by Neurology. Acute pancreatitis: This appears resolved. Moderate protein calorie malnutrition: Will have dietary assess daily needs. Encourage oral intake. Time Spent Managing Pts Care (In Minutes): 55
--- NOTE | 2020-04-19 14:58 | RAD REPORT ---
EXAM DESCRIPTION: MRI - Brain Wo Cont - 04/19/2020 2:35 pm CLINICAL HISTORY: Ataxia rule out CVA., confusion, transient alteration of awareness COMPARISON: Head Brain Wo Cont dated 04/16/2020 TECHNIQUE: Sagittal T1-weighted images were obtained along with axial PD, heavily T2-weighted and T2 -FLAIR images. Axial DWI and ADC mapping sequences were also obtained along with coronal heavily T2-w eighted images. FINDINGS: No intracranial hemorrhage, mass or acute infarction. There is no edema or shift of midlin e structures. No extra-axial fluid collections. Larsen-matter/white matter junction is preserved. Signa l voids are seen as a normal finding in the major intracranial vessels. Patient has mild to moderate atrophy. Ventricles are in proportion. Chronic ischemic changes are mild. No globe or orbital content abnormality. Mastoid air cells and paranasal sinuses are clear. Exam has motion degradation limitations. Multiple sequences repeated. Exam is still considered diagno stic quality. IMPRESSION: No acute infarction. No hemorrhage, mass or acute intracranial finding. Atrophy and chronic ischemic changes are present. Ventricles are in proportion to volume loss.
[2020-04-19 16:36] LABS: Phosphorus 2.8 mg/dL (2.5-4.9); Potassium 3.6 mmol/L (3.5-5.1)
[2020-04-19] MEDS ORDERED: POTASSIUM CL SA 10 MEQ TAB PO ONE (17:49)
[2020-04-19] MEDS: ENSURE ENLIVE 237 ML CAN PO SCH (21:00)
--- NOTE | 2020-04-19 22:31 | CON ---
Reason For Consultation: Consultation called because of alcohol withdrawal. History Of Present Illness: Mr. Jaeger is a 64-year-old, right-handed, patient with long- standing heavy alcohol abuse with significant gait ataxia and multiple hospital admissions with alcoh ol related symptoms. The patient was brought in by his sister because of worsening unsteady gait and diffuse weakness with drowsiness. He also had blurred vision and was not fully oriented. Symptoms had worsened as mentioned over perhaps several weeks. In [facility], his head CT scan and s ubsequent brain MRI were remarkable for chronic atrophy more than expected for age with ventricular s ize increased in proportion. Blood work showed normal white blood cell count with a slightly decreas ed hemoglobin of 11.9, platelets decreased to 124. Coagulation panel is unremarkable. Chemistries s howed low potassium of 3.3, low phosphorus of 1.7, low calcium of 7.6. His liver function studies sh ow elevated alkaline phosphatase 122, elevated AST at , total bilirubin elevated to 1.3, HD L cholesterol was 74, LDL cholesterol 51, glucose ranged from 84 to 106 and urinalysis was negative. His urine toxicology screen was positive for alcohol elevated to 14 with normal range of less than 1 0. Otherwise, his urine drug screen was negative. He has hepatitis panel pending and his COVID-19 t est is negative. He was treated with alcohol withdrawal prophylaxis including thiamine, folic acid, and benzodiazepine s along with aspirin and Lovenox for DVT prophylaxis. Since hospitalization, the patient had no sign ificant tachycardia or tachypnea and no fevers and no seizures. Past Medical History: As indicated. Allergies: NO KNOWN DRUG ALLERGIES. Home Medications: None. Past Surgical History: None. Family History: Noncontributory. Social History: Smokes pack cigarettes daily and drinks alcohol significant amounts daily. Review of Systems: As mentioned, difficulty with gait, coordination. He is disoriented and confused and not able to giv e a reliable review of systems. Physical Examination: Vital Signs: Blood pressure 132/76, pulse 69, respiratory rate 18, temperature 97.9, oxygen saturati on 99% on room air. Weight 150 pounds, height 5 feet 6 inches, BMI 18.6. NEUROLOGIC: The patient appears cachectic with significant muscle wasting in all extremities. He is otherwise slow to respond to communication, but was oriented to himself and place and did follow com mands appropriately. Cranial nerves show mild nystagmus on [id number] eye movement. He did not [place] ophthalmoplegia. Cranial nerves otherwise show no focal deficits. Motor examination has di ffuse weakness in upper and lower extremities, 5/5 strength proximally and distally. Sensory examina tion, decreased light touch, temperature in stocking-glove fashion. Reflexes depressed in the upper and lower extremities. Coordination, mild dysmetria noted in the upper and lower extremities. In te janice of his gait, he was evaluated by physical therapy. He did ambulate 20 feet with moderate assista nce using a rolling walker. Assessment: Mr. Jaeger is a 64-year-old patient with longstanding chronic heavy alcohol abuse, dif fuse brain atrophy, which is likely a contributing factor to his gait ataxia. He also is malnourishe d and anemic with electrolyte derangements and liver dysfunction. His ammonia level was low at 10. Please note that on admission, his AST was elevated at 83, ALT , alkaline phosphate is 161. Beta nitrate peptide was 590. After he was hydrated, those numbers improved. Also please note, hi s total bilirubin was elevated to 1.5, direct bilirubin 2.7 and those improve with hydration. Plan: The patient should be kept on thiamine, folic acid, alcohol withdrawal. He will be served bes t by being enrolled in an alcohol cessation program. He was advised to strongly stop consuming alcoh ol. He should use a walker while ambulating due to his high risk of falling. He has no resources and may not qualify for inpatient rehabilitation or custodial. The patient 's family may be required to assist in in terms of his ability to mobilize and take care of himself. He may be discharged to the care of his family. MARILIA/CONCHIS Voice ID: [id number] Report ID: [id number]
[2020-04-20 05:45] LABS: BUN Blood Urea Nitrogen 1 mg/dL (7-18); Bicarbonate 25 mmol/L (21-32); Glucose Level 87 mg/dL (74-106); Magnesium 1.8 mg/dL (1.8-2.4); Potassium 3.8 mmol/L (3.5-5.1); Sodium Level 136 mmol/L (136-145)
[2020-04-20] MEDS ORDERED: MAGNESIUM SULFATE 1 gm IVPB 1 GM/100 ML BAG IV ONE (07:30)
[2020-04-20] MEDS ORDERED: POTASSIUM 25 MEQ EFFERV TAB PO ONE (09:00)
[2020-04-20] MEDS: ASPIRIN EC 81 MG TAB PO SCH (09:58)
[2020-04-20] MEDS: THIAMINE HCL 100 MG TABLET PO SCH (09:58)
[2020-04-20] MEDS: ENSURE ENLIVE 237 ML CAN PO SCH ×2 (09:58→20:33)
[2020-04-20] MEDS: ENOXAPARIN 40 MG/0.4 ML SQ SCH (09:58)
[2020-04-20] MEDS: FOLIC ACID 1 MG TABLET PO SCH (09:58)
--- NOTE | 2020-04-20 13:58 | P.PN ---
Subjective Date of Service: 04/20/20 Primary Care Provider: unknown Chief Complaint: Hallucinations Subjective: Other (Patient more alert today. Still with some difficulty with ambulation noted by physical therapy.) Physical Examination - Vital Signs Temperature: 97 F Blood Pressure: 103/64 Pulse: 82 Respirations: 18 Pulse Ox (%): 98 - Physical Exam General: Alert HEENT: Atraumatic Neck: Supple Respiratory: Clear to auscultation bilaterally, Normal air movement Cardiovascular: Normal pulses, Regular rate/rhythm Neurological: Other (Still noticeable difficulty with ambulation.) - Studies Medications List Reviewed: Yes Assessment & Plan Discharge Plan: Home Plan to discharge in: 48 Hours Physician Review Additional Text: Impression: Ataxia likely related to Alcohol withdrawal syndrome complicated with suspected worn acute encephalopathy and noted brain atrophy Acute pancreatitis Moderate protein calorie malnutrition Plan: Ataxia likely related to Alcohol withdrawal syndrome complicated with suspected Wernicke encephalopathy and noted brain atrophy: Continue with Ativan as needed. Continue with thiamine and folic acid. Case discussed with Neurology. Neurology recommends alcohol cessation in the future. This was discussed in detail with the patient. It is unclear whether he will comply with alcohol cessation. Case also discuss with sister who looks after him. She mentioned that patient did go to alcohol rehab in the past. Will continue to encourage this. Continue to work with physical therapy. Patient still unsteady with his gait. Once the patient is more able and decrease fall risk is noted then will consider discharge. This will likely occur in the next 48 hr. Continue to monitor closely. Will have social Work work on possible options of outpatient care at discharge. Acute pancreatitis: This appears resolved. Moderate protein calorie malnutrition: Will have dietary assess daily needs. Encourage oral intake. Time Spent Managing Pts Care (In Minutes): 55
[2020-04-21 05:21] LABS: BUN Blood Urea Nitrogen 4 mg/dL (7-18); Bicarbonate 27 mmol/L (21-32); Glucose Level 88 mg/dL (74-106); Magnesium 2.2 mg/dL (1.8-2.4); Potassium 3.7 mmol/L (3.5-5.1); Sodium Level 138 mmol/L (136-145)
[2020-04-21] MEDS: THIAMINE HCL 100 MG TABLET PO SCH (08:04)
[2020-04-21] MEDS: ASPIRIN EC 81 MG TAB PO SCH (08:04)
[2020-04-21] MEDS: FOLIC ACID 1 MG TABLET PO SCH (08:04)
[2020-04-21] MEDS: ENOXAPARIN 40 MG/0.4 ML SQ SCH (08:05)
[2020-04-21] MEDS: ENSURE ENLIVE 237 ML CAN PO SCH (08:08)
[2020-04-21] MEDS ORDERED: POTASSIUM 25 MEQ EFFERV TAB PO ONE (09:00)
[2020-04-21 10:53] VITALS: O2SAT 96
[2020-04-21 12:53] VITALS: BP 102/61; TEMP 97
--- NOTE | 2020-04-21 12:58 | P.DS ---
Admission Date: 04/17/20 Discharge Date: 04/21/20 Primary Care Provider: unknown Disposition: ROUTINE DISCHARGE Discharge Condition: GOOD Reason for Admission: Hallucinations Consultations: Neurology-Dr. Moody Procedures: CT Brain: FINDINGS: No intracranial hemorrhage, mass, edema or shift of mid-line structures. No acute infarction changes seen. Atrophy changes are present prominent for the patient's age. Chronic ischemic changes are also seen. Ventricles are in proportion to volume loss. No cortical edema or sulcal effacement identified. Mastoid air cells and visualized portions of the paranasal sinuses are clear. No acute bony findings. IMPRESSION: No hemorrhage, mass or acute intracranial finding identifiable. Patient has atrophy and chronic ischemic changes that are advanced for age. Chronic ischemic change can mask nonhemorrhagic CVA. MRI Brain: FINDINGS: No intracranial hemorrhage, mass or acute infarction. There is no edema or shift of midline structures. No extra-axial fluid collections. Larsen- matter/white matter junction is preserved. Signal voids are seen as a normal finding in the major intracranial vessels. Patient has mild to moderate atrophy. Ventricles are in proportion. Chronic ischemic changes are mild. No globe or orbital content abnormality. Mastoid air cells and paranasal sinuses are clear. Exam has motion degradation limitations. Multiple sequences repeated. Exam is still considered diagnostic quality. IMPRESSION: No acute infarction. No hemorrhage, mass or acute intracranial finding. Atrophy and chronic ischemic changes are present. Ventricles are in proportion to volume loss. CT scan: FINDINGS: Lower lungs are clear. Abdomen: The liver is normal in appearance. There is no biliary dilatation. Gallbladder is normal in appearance. The pancreas and spleen are normal in appearance. The adrenal glands and kidneys are unremarkable. Abdominal aorta is normal in course and caliber without aneurysm. There is no free air. There is no retroperitoneal adenopathy. Pelvis: There is no bowel obstruction. Urinary bladder is unremarkable. There is no free fluid. Appendix is not well seen. Skeleton: There are no acute osseous findings. No suspicious bony lesions. IMPRESSION: No definite acute process. Medical Problem List: Ataxia likely related to Alcohol withdrawal syndrome complicated with suspected Wernicke encephalopathy and noted brain atrophy Acute pancreatitis, resolved likely alcohol related Moderate protein calorie malnutrition Anemia of chronic disease Brief History of Present Illness: 64-year-old male with history of alcohol abuse. Patient presented with multiple symptoms including ataxia. Patient has had multiple admissions for alcohol-related symptoms. The patient was brought in by the sister due to worse jaymie gait and increased drowsiness. Hospital Course: Patient presented with Ataxia likely related to Alcohol withdrawal syndrome complicated with suspected Wernicke encephalopathy and noted brain atrophy. The patient was seen and evaluated by Neurology. MRI showed no acute stroke. No hemorrhage noted. No mass or significant abnormal intracranial finding. Atrophy and chronic ischemic changes noted. Neurology suspects this is related to his alcohol abuse. Physical therapy worked with the patient. Patient requires a great deal of assistance. Physical therapy has made meet recommendations. Case discussed in detail with sister who plans to take care of the patient. Patient will be discharged home with the sister. Physical therapy will work with the sister to help with exercises. Patient would benefit with outpatient physical therapy. Will recommend this. At discharge patient may continue with thiamine 100 mg daily and folic acid 1 mg daily. Recommend alcohol cessation. This was addressed in detail. Unsure whether patient will comply with this. Sister will try to work to keep him from drinking more alcohol as this will likely worsen his ataxia and encephalopathy. Fall precautions to be continued. Recommend follow up with Neurology in 2-4 weeks. Patient was found to have moderate protein calorie malnutrition. Dietary recommended Ensure. Patient may continue with Ensure 3 times a day. Patient had elevated lipase suspicious for pancreatitis. This resolved. CT showed no indication of this. He is at risk of alcohol pancreatitis. Alcohol cessation addressed. Patient with anemia of chronic disease. He will continue with Thiamine and Folic acid. Recommend to recheck lab-CBC in one month. Vital Signs/Physical Exam: Temp Pulse Resp BP Pulse Ox 97 F 75 19 102/61 99 04/21/20 12:00 04/21/20 12:00 04/21/20 12:00 04/21/20 12:00 04/21/20 12:00 General: Alert, In no apparent distress, Oriented x3, Cooperative HEENT: Atraumatic Neck: Supple Respiratory: Clear to auscultation bilaterally, Normal air movement Cardiovascular: Normal pulses, Regular rate/rhythm Neurological: Normal speech, Normal strength at 5/5 x4 extr, Normal tone, De mentia Laboratory Data at Discharge: WBC 10.0 K/uL (4.3-10.9) D 04/18/20 04:57 Hgb 11.9 g/dL (13.6-17.9) L 04/18/20 04:57 Hct 34.4 % (39.6-49.0) L 04/18/20 04:57 Plt Count 124 K/uL (152-406) L 04/18/20 04:57 PT 12.0 SECONDS (9.5-12.5) 04/16/20 20:37 INR 1.02 04/16/20 20:37 Sodium 138 mmol/L (136-145) 04/21/20 04:35 Potassium 3.7 mmol/L (3.5-5.1) 04/21/20 04:35 BUN 4 mg/dL (7-18) L 04/21/20 04:35 Creatinine 0.47 mg/dL (0.55-1.3) L 04/21/20 04:35 Glucose 88 mg/dL (74-106) 04/21/20 04:35 Phosphorus 3.0 mg/dL (2.5-4.9) 04/20/20 05:05 Magnesium 2.2 mg/dL (1.8-2.4) 04/21/20 04:35 Total Bilirubin 1.3 mg/dL (0.2-1.0) H 04/18/20 04:57 AST 51 U/L (15-37) H 04/18/20 04:57 ALT 61 U/L (12-78) 04/18/20 04:57 Alkaline Phosphatase 122 U/L (45-117) H 04/18/20 04:57 Triglycerides 86 mg/dL (<150) 04/18/20 04:57 Cholesterol 142 mg/dL (<200) 04/18/20 04:57 HDL Cholesterol 74 mg/dL (40-60) H 04/18/20 04:57 Cholesterol/HDL Ratio 1.92 04/18/20 04:57 Lipase 269 U/L (73-393) 04/18/20 04:57 Home Medications: Folic Acid 1 mg PO DAILY #90 tablet 04/21/20 Lactose-Reduced Food [Ensure Enlive] 237 ml PO TID #90 liquid 04/21/20 Thiamine HCl [Vitamin B-1*] 100 mg PO DAILY #90 tablet 04/21/20 New Medications: Lactose-Reduced Food [Ensure Enlive] 237 ml PO TID #90 liquid Folic Acid 1 mg PO DAILY #90 tablet Thiamine HCl [Vitamin B-1*] 100 mg PO DAILY #90 tablet Patient Discharge Instructions: 1. Follow up with PCP to establish care. 2. Patient presented with Ataxia likely related to Alcohol withdrawal syndrome complicated with suspected Wernicke encephalopathy and noted brain atrophy. The patient was seen and evaluated by Neurology. MRI showed no acute stroke. No hemorrhage noted. No mass or significant abnormal intracranial finding. Atrophy and chronic ischemic changes noted. Neurology suspects this is related to his alcohol abuse. Physical therapy worked with the patient. Patient requires a great deal of assistance. Physical therapy has made meet recommendations. Case discussed in detail with sister who plans to take care of the patient. Patient will be discharged home with the sister. Physical therapy will work with the sister to help with exercises. Patient would benefit with outpatient physical therapy. Will recommend this. At discharge patient may continue with thiamine 100 mg daily and folic acid 1 mg daily. Recommend alcohol cessation. This was addressed in detail. Unsure whether patient will comply with this. Sister will try to work to keep him from drinking more alcohol as this will likely worsen his ataxia and encephalopathy. Fall precautions to be continued. Recommend follow up with Neurology in 2-4 weeks. 3. Patient was found to have moderate protein calorie malnutrition. Dietary recommended Ensure. Patient may continue with Ensure 3 times a day. 4. Patient had elevated lipase suspicious for pancreatitis. This resolved. CT showed no indication of this. He is at risk of alcohol pancreatitis. Alcohol cessation addressed. 5. Patient with anemia of chronic disease. He will continue with Thiamine and Folic acid. Recommend to recheck lab-CBC in one month. Diet: Regular Activity: Fall precautions Time spent managing pt's care (in minutes): 55
[2020-04-23 12:28] LABS: HIV AG/AB 4TH GEN Non-reactive (Non-reactive)
[2020-04-24 22:10] LABS: HBsAG Nonreactive (Nonreactive)
== END 2020-04-21 15:03 | disposition home or self-care (01) | DRG 896 ==
LOC: ER 20:00 → ERHOLD 04-17 00:39 → 2ND 04-17 01:18
PROVIDERS: ADMIT Internal Medicine; ATTEND Family Medicine
DX: F10.239 Alcohol dependence with withdrawal, unspecified (principal); K85.20 Alcohol induced acute pancreatitis without necrosis or infection; E87.1 Hypo-osmolality and hyponatremia; E51.2 Wernicke's encephalopathy; E44.0 Moderate protein-calorie malnutrition; Z68.1 Body mass index [BMI] 19.9 or less, adult; G31.9 Degenerative disease of nervous system, unspecified; K76.89 Other specified diseases of liver; D63.8 Anemia in other chronic diseases classified elsewhere; F17.210 Nicotine dependence, cigarettes, uncomplicated; Z79.891 Long term (current) use of opiate analgesic; Z79.01 Long term (current) use of anticoagulants; Z79.899 Other long term (current) drug therapy; Z11.59 Encounter for screening for other viral diseases
CPT/HCPCS: 36415; 51702; 70450; 70551; 71045; 74177; 80048; 80053; 80061; 80074; 80076; 80307; 80320; 80329; 81003; 82140; 82947; 83690; 83735; 83880; 84100; 84132; 84484; 85025; 85610; 87389; 93005; 94760; 96361; 96365; 96375; 97112; 97116; 97161; 97530; 99285; J1650; J2405; J2550; J3411; J3475; J3480; J7030; J7040; J7799; Q9967; U0002

== ENCOUNTER 2023-02-09 17:28 | Inpatient (IN) | payer OTHER, SELFPAY ==
[2023-02-09] MEDS ORDERED: NA CHLORIDE 0.9% 0 ML ONE (18:26)
[2023-02-09] MEDS ORDERED: NA CHLORIDE 0.9% 500 ML ONE (18:26)
[2023-02-09] MEDS ORDERED: CEFTRIAXONE 1000 MG/VIAL ONE (18:26)
[2023-02-09 18:32] LABS: Absolute Lymphocytes (CBC) 0.4 K/uL (0.7-4.9); Lymphocytes % 2.2 % (15.3-44.8); MPV 8.4 fL (7.6-11.3)
[2023-02-09 18:35] LABS: Protime INR 1.23
[2023-02-09 18:46] LABS: Albumin 3.4 g/dL (3.4-5.0); Bilirubin Total 0.6 mg/dL (0.2-1.0); Potassium 3.8 mEq/L (3.5-5.1); Protein, Total 7.7 g/dL (6.4-8.2); Troponin High Sensitivity 21.8 pg/mL (<58.9)
--- NOTE | 2023-02-09 19:05 | RAD REPORT ---
EXAM DESCRIPTION: CT - [id number] - 02/09/2023 6:30 pm CLINICAL HISTORY: Trauma, head and neck injury. fall COMPARISON: Head Brain Wo Cont dated 04/16/2020 TECHNIQUE: Axial thin cut noncontrast CT images of the head were obtained. Axial thin cut noncontrast CT images of the cervical spine were obtained. Multiplanar reformatted images were generated and reviewed. All CT scans are performed using dose optimization technique as appropriate and may include automated exposure control or mA/KV adjustment according to patient size. FINDINGS: CT HEAD WITHOUT CONTRAST: No acute hemorrhage, hydrocephalus or extra-axial collection is identified.No areas of brain edema or midline shift. Mild periventricular and deep white matter hypodensity, nonspecific, most suggestive of chronic small vessel ischemic changes. The pattern is stable. The paranasal sinuses and mastoids are clear.The calvarium is intact. CT CERVICAL SPINE WITHOUT CONTRAST: No fracture or subluxation.No prevertebral soft tissues swelling is identified. Multilevel cervical spine degenerative changes with up to moderate disc height loss at C6-7, and variable degrees of neur al foraminal narrowing, most pronounced on the right at C5-6. IMPRESSION: No acute traumatic intracranial or cervical spine findings. Chronic findings as above.
[2023-02-09] MEDS ORDERED: NA CHLORIDE 0.9% 1,000 ML ONE ×3 (19:20→21:30)
--- NOTE | 2023-02-09 19:30 | RAD REPORT ---
EXAM DESCRIPTION: RAD - Pelvis - 02/09/2023 6:43 pm CLINICAL HISTORY: fall COMPARISON: PELVIS dated 08/14/2014 TECHNIQUE: Single AP view of the pelvis. FINDINGS: The visualized pelvic ring is intact. No suspicious osseous lesions. Right total hip arthr oplasty hardware in stable alignment. Mild left hip joint degenerative changes again seen. Other pelv ic joints are unremarkable. Visualized aspects of the abdomen and soft tissues are unremarkable. IMPRESSION: No acute osseous abnormality of the bony pelvis.
--- NOTE | 2023-02-09 19:31 | RAD REPORT ---
[facility] CLINICAL HISTORY: COUGH COMPARISON: Chest Single View dated 04/16/2020; CHEST SINGLE VIEW dated 08/14/2014 TECHNIQUE: Portable AP view of the chest. FINDINGS: Decreased inspiratory effort limits evaluation. New hazy left basilar airspace opacity. . No pneumothorax or effusion. The cardiomediastinal contours are unremarkable. IMPRESSION: New hazy left basilar airspace opacity, could reflect atelectasis or developing airspace disease.
[2023-02-09] MEDS ORDERED: METRONIDAZOLE 500mg IVPB 500 MG/100 ML BAG IV ONE (19:37)
--- NOTE | 2023-02-09 20:11 | EDPHYS ---
Physician Documentation [facility] Name: Nikko Jaeger Age: 67 yrs Sex: Male : 1955 Arrival Date: 02/09/2023 Time: 17:28 Bed 13 Private MD: ED Physician Todd Morales HPI: 02/09 17:55 This 67 yrs old Male presents to ER via EMS with complaints of Fall Injury. bs3 17:55 67-year-old male history of dementia presents status post unwitnessed fall he got up bs3 and walked to the bathroom and fell and then was found to have diarrhea he was able to get up afterwards history is limited secondary to his dementia but per his sister at bedside he had significant amount of diarrhea in the hospital no recent antibiotic use no fevers or chills he does not drink much water but otherwise he is doing okay. Historical: - Allergies: 17:53 No Known Allergies; hb - Home Meds: 21:22 olanzapine 10 mg oral tablet 1 tab daily [Active]; fluoxetine 40 mg Oral capsule 1 cap nj1 daily [Active]; Folic Acid Oral [Active]; Vitamin B-1 (mononitrate) oral [Active]; - Immunization history:: Adult Immunizations up to date. - Social history:: Smoking status: Patient denies any tobacco usage or history of. ROS: 17:55 Constitutional: Negative for fever, chills bs3 17:55 All other systems are negative. Exam: 17:55 Constitutional: Patient appears slightly tired otherwise well-appearing Head/Face: bs3 Normocephalic, atraumatic. Eyes: Pupils equal round and reactive to light, extra-ocular motions intact. Lids and lashes normal. ENT: mmm, no posterior phyarngeal erythema Neck: Trachea midline, no thyromegaly, no neck stiffness Chest/axilla: Normal chest wall appearance and motion. Nontender with no deformity. No lesions are appreciated. Cardiovascular: Tachycardic, no murmur Respiratory: Lungs have equal breath sounds bilaterally, clear to auscultation, no respiratory distress Abdomen/GI: Soft, non-tender, no rebound or guarding Skin: Warm, dry with normal turgor. Normal color with no rashes, no lesions, and no evidence of cellulitis. MS/ Extremity: Pulses equal, no cyanosis. Neurovascular intact. Full, normal range of motion. Neuro: alert and oriented to self and location, follows commands, no focal deficitis. Psych: Awake, alert, with orientation to person, place and time. Behavior, mood, and affect are within normal limits. Vital Signs: 17:49 BP 104 / 61; Pulse 100; Resp 30; Temp 101.8(O); Pulse Ox 96% on R/A; Weight 68.04 kg; hb Height 5 ft. 6 in. ; Pain 0/10; 18:50 BP 86 / 55; Pulse 87; Resp 20; Pulse Ox 96% on 2 lpm NC; nj1 19:22 BP 91 / 63; Pulse 81; Resp 20; Pulse Ox 96% on 2 lpm NC; nj1 21:06 BP 90 / 61; Pulse 72; Resp 20; Temp 98.5(O); Pulse Ox 95% on 2 lpm NC; nj1 22:07 BP 109 / 59; Pulse 73; Resp 15 S; Pulse Ox 95% on 2 lpm NC; ha1 23:54 BP 93 / 64; Pulse 69; Resp 18 S; Pulse Ox 70% on R/A; ha1 17:49 Body Mass Index 24.21 (68.04 kg, 167.64 cm) hb 17:49 Pain Scale: Adult hb MDM: 17:52 Patient medically screened. bs3 17:55 Data reviewed: vital signs, nurses notes. ED course: 67-year-old with fever diarrhea bs3 and syncope here will rule out intercranial hemorrhage given the trauma and his baseline dementia will evaluate for electrolyte abnormality will evaluate for infectious process will give antibiotics Will evaluate for COVID, flu. 20:08 ED course: a sepsis reassessment was performed map >65, antibitotics given, pt with bs3 septic shock, will admit to Dr. Hughes. 02/09 17:54 Order name: Blood Culture Adult (2) bs3 02/09 17:54 Order name: CBC with Diff; Complete Time: 20:25 bs3 02/09 17:54 Order name: CMP; Complete Time: 19:06 bs3 02/09 17:54 Order name: Lactate w/ 2H reflex if indic.; Complete Time: 19:06 bs3 02/09 17:54 Order name: Protime (+inr); Complete Time: 19:06 bs3 02/09 17:54 Order name: Ptt, Activated; Complete Time: 19:06 3 02/09 17:54 Order name: Urinalysis w/ reflexes; Complete Time: 21:38 3 02/09 17:54 Order name: Troponin High Sensitivity; Complete Time: 19:06 3 02/09 19:39 Order name: Stool Culture [facility] 02/09 19:39 Order name: CDIFF 4 02/09 19:39 Order name: Fecal Leukocyte Stain [facility] 02/09 19:39 Order name: Ova And Parasites [facility] 02/09 19:39 Order name: Rotavirus Antigen [facility] 02/09 19:46 Order name: LAB Add On [facility] 02/09 19:46 Order name: UDS; Complete Time: 21:38 [facility] 02/09 19:59 Order name: Alcohol Serum/Plasma; Complete Time: 20:30 EDIA 02/09 20:16 Order name: SARS-COV-2 RT PCR; Complete Time: 22:31 02/09 20:16 Order name: Flu; Complete Time: 22:31 02/09 20:20 Order name: Lipase; Complete Time: 22:31 4 02/09 20:22 Order name: CBC Smear Scan; Complete Time: 20:25 EDMS 02/09 21:21 Order name: Urine Culture [facility] 02/09 21:33 Order name: Lactate Sepsis 2 HR Follow-up; Complete Time: 21:38 EDIA 02/09 17:54 Order name: Chest Single View XRAY; Complete Time: 19:38 3 02/09 17:54 Order name: Pelvis XRAY; Complete Time: 19:38 3 02/09 17:54 Order name: CT Head C Spine; Complete Time: 19:08 3 02/09 20:26 Order name: CT Chest Abdomen Pelvis W/O Contrast; Complete Time: 21:38 4 02/09 17:54 Order name: EKG; Complete Time: 17:56 3 02/09 17:54 Order name: Accucheck; Complete Time: 21:27 3 02/09 17:54 Order name: Cardiac monitoring; Complete Time: 19:21 [facility] 02/09 17:54 Order name: EKG - Nurse/Tech; Complete Time: 21:27 [facility] 02/09 17:54 Order name: IV Saline Lock - Large Bore; Complete Time: 19:22 bs3 02/09 17:54 Order name: Labs collected and sent; Complete Time: 19:22 bs3 02/09 17:54 Order name: O2 Per Protocol; Complete Time: 19:22 bs3 02/09 17:54 Order name: O2 Sat Monitoring; Complete Time: 19:22 bs3 02/09 17:54 Order name: Vital Signs; Complete Time: 19:22 bs3 Administered Medications: 18:38 Drug: NS 0.9% IV 500 ml Route: IV; Rate: bolus; Site: left forearm; nj1 19:00 Follow up: Response: No adverse reaction; IV Status: Completed infusion; IV Intake: nj1 500ml 18:42 Drug: Rocephin IV 1 grams Route: IV; Rate: 1 bolus; Site: left forearm; nj1 19:10 Drug: NS 0.9% IV (30 ml/kg) 30 ml/kg Route: IV; Rate: bolus; Site: left forearm; nj1 20:30 Follow up: Response: No adverse reaction; IV Status: Completed infusion; IV Intake: nj1 2000ml 19:35 Drug: metroNIDAZOLE IVPB 500 mg Volume: 100 ml; Route: IVPB; Rate: 200 ml/hr; Infused nj1 Over: 30 mins; Site: right forearm; 20:05 Follow up: Response: No adverse reaction; IV Status: Completed infusion; IV Intake: nj1 100ml 21:26 Drug: NS 0.9% IV 1000 ml Route: IV; Rate: 100 ml/hr; Site: right forearm; ha1 Disposition Summary: 02/09/23 20:10 Hospitalization Ordered Hospitalization Status: Inpatient Admission bs3 Provider: Yordy Hughes bs3 Location: Telemetry/MedSur (Inpatient) bs3 Condition: Serious bs3 Problem: new bs3 Symptoms: have improved bs3 Bed/Room Type: Standard bs3 Room Assignment: 229(02/09/23 21:48) Diagnosis - Other specified sepsis bs3 Forms: - Medication Reconciliation Form bs3 - SBAR form bs3 Critical care time excluding procedures: 20:08 Critical care time: Bedside Care: 35 minutes. Total time: 35 minutes bs3 Signatures: Dispatcher MedHo Melissa Braun RN RN mw Baxter, Heather, RN RN hb Shonda Quiles RN RN ha1 Todd Morales MD MD bs3 Adilia Little PA-C PAPeggy sb4 Belén Arnold RN RN nj1 Corrections: (The following items were deleted from the chart) 20:29 20:09 Abdomen Pelvis Wo Con+CT.RAD.BRZ ordered. EDMS EDMS 21:48 20:10 bs3 mw
--- NOTE | 2023-02-09 20:11 | ER ---
Nurse's Notes [facility] Name: Nikko Jaeger Age: 67 yrs Sex: Male : 1955 Arrival Date: 02/09/2023 Time: 17:28 Bed 13 Private MD: Diagnosis: Other specified sepsis Presentation: 02/09 17:49 Chief complaint: EMS states: Sister called for unwitnessed fall and diarrhea today, pt hb reports mechanical fall while ambulating to the bathroom, abrasions noted to right knee, denies other injuries. On scene BP 98/66, HR 108, SpO2 92% on RA, improved to 94% on 2LNC, T 103.1, Tylenol 1GM administered in route. Coronavirus screen: At this time, the client does not indicate any symptoms associated with coronavirus-19. Ebola Screen: No symptoms or risks identified at this time. Initial Sepsis Screen: Does the patient meet any 2 criteria? RR > 20 per min. HR > 90 bpm. Yes Does the patient have a suspected source of infection? Yes: Other: diarrhea. Risk Assessment: Do you want to hurt yourself or someone else? Patient reports no desire to harm self or others. Onset of symptoms was February 09, 2023. 17:49 Method Of Arrival: EMS: [facility] hb 17:49 Acuity: NELLIE 2 hb Triage Assessment: 18:00 Pain: Denies pain. nj1 Historical: - Allergies: 17:53 No Known Allergies; hb - Home Meds: 21:22 olanzapine 10 mg oral tablet 1 tab daily [Active]; fluoxetine 40 mg Oral capsule 1 cap nj1 daily [Active]; Folic Acid Oral [Active]; Vitamin B-1 (mononitrate) oral [Active]; - Immunization history:: Adult Immunizations up to date. - Social history:: Smoking status: Patient denies any tobacco usage or history of. Screenin:03 [facility] ED Fall Risk Assessment (Adult) History of falling in the last 3 months, nj1 including since admission Yes- single mechanical fall (1 pt) Confusion or Disorientation Yes (5 pts) Intoxicated or Sedated No (0 pts) Impaired Gait No (0 pts) Mobility Assist Device Used Yes (1 pt) Altered Elimination Yes (1 pt) Score/Fall Risk Level 3 or more points = High Risk Oriented to surroundings, Maintained a safe environment, Educated pt \T\ family on fall prevention, incl call for assistance when getting out of bed, Assessed \T\ reinforced patient's understanding of fall precautions, Provided non-skid footwear, Hourly rounding (assess needs \T\ fall precautionary measures) done, Offered frequent toileting (1:1 observation), Remained with patient while ambulating, Utilized family, sitter, or virtual milk hauler as indicated. Abuse screen: Denies threats or abuse. Denies injuries from another. Nutritional screening: No deficits noted. Tuberculosis screening: No symptoms or risk factors identified. Assessment: 17:51 Reassessment: CDE SEPSIS CALLED. hb 18:00 General: Appears in no apparent distress. comfortable, Behavior is calm, cooperative, nj1 appropriate for age. Neuro: Level of Consciousness is awake, alert, obeys commands, Oriented to person. Cardiovascular: Patient's skin is warm and dry. Respiratory: Airway is patent Respiratory effort is even, unlabored. 18:36 Reassessment: Not in room at this time. nj1 18:45 Reassessment: Patient appears in no apparent distress at this time. Patient and/or nj1 family updated on plan of care and expected duration. Pain level reassessed. Patient denies pain at this time. 19:35 Reassessment: Patient appears in no apparent distress at this time. Patient and/or nj1 family updated on plan of care and expected duration. Pain level reassessed. Patient denies pain at this time. 22:00 Reassessment: Patient and/or family updated on plan of care and expected duration. Pain ha1 level reassessed. Patient is alert, oriented x 3, equal unlabored respirations, skin warm/dry/pink. attempted to give report. 22:44 Reassessment: attempted to give report. nurse unavailable. ha1 23:00 Reassessment: Patient and/or family updated on plan of care and expected duration. Pain ha1 level reassessed. Patient is alert, oriented x 3, equal unlabored respirations, skin warm/dry/pink. Vital Signs: 17:49 BP 104 / 61; Pulse 100; Resp 30; Temp 101.8(O); Pulse Ox 96% on R/A; Weight 68.04 kg; hb Height 5 ft. 6 in. ; Pain 0/10; 18:50 BP 86 / 55; Pulse 87; Resp 20; Pulse Ox 96% on 2 lpm NC; nj1 19:22 BP 91 / 63; Pulse 81; Resp 20; Pulse Ox 96% on 2 lpm NC; nj1 21:06 BP 90 / 61; Pulse 72; Resp 20; Temp 98.5(O); Pulse Ox 95% on 2 lpm NC; nj1 22:07 BP 109 / 59; Pulse 73; Resp 15 S; Pulse Ox 95% on 2 lpm NC; ha1 23:54 BP 93 / 64; Pulse 69; Resp 18 S; Pulse Ox 70% on R/A; ha1 17:49 Body Mass Index 24.21 (68.04 kg, 167.64 cm) hb 17:49 Pain Scale: Adult hb ED Course: 17:46 Patient arrived in ED. hb 17:46 Todd Morales MD is Attending Physician. bs3 17:52 Triage completed. hb 17:54 Arm band placed on. hb 18:00 Patient has correct armband on for positive identification. Bed in low position. Call nj1 light in reach. Side rails up X 1. Adult w/ patient. 18:05 Inserted saline lock: 20 gauge in left forearm, using aseptic technique. Blood nj1 collected. 18:27 Belén Arnold, HOLLAND is Primary Nurse. nj1 18:31 CT Head C Spine In Process Unspecified. EDMS 18:40 Second set of blood cultures drawn by in. nj1 18:45 Chest Single View XRAY In Process Unspecified. EDMS 18:45 Pelvis XRAY In Process Unspecified. EDMS 19:20 Inserted saline lock: 20 gauge in right forearm, using aseptic technique. nj1 20:07 EKG done, by ED staff. mb4 20:10 Yordy Hughes is Hospitalizing Provider. bs3 21:00 Straight cath inserted, using sterile technique, 14 Fr. Specimen obtained. Returned nj1 reji urine. Patient tolerated well. 21:12 LAB Add On Sent. nj1 21:19 CT Chest Abdomen Pelvis W/O Contrast In Process Unspecified. EDMS 23:52 No provider procedures requiring assistance completed. Patient admitted, IV remains in ha1 place. Administered Medications: 18:38 Drug: NS 0.9% IV 500 ml Route: IV; Rate: bolus; Site: left forearm; nj1 19:00 Follow up: Response: No adverse reaction; IV Status: Completed infusion; IV Intake: nj1 500ml 18:42 Drug: Rocephin IV 1 grams Route: IV; Rate: 1 bolus; Site: left forearm; nj1 19:10 Drug: NS 0.9% IV (30 ml/kg) 30 ml/kg Route: IV; Rate: bolus; Site: left forearm; nj1 20:30 Follow up: Response: No adverse reaction; IV Status: Completed infusion; IV Intake: nj1 2000ml 19:35 Drug: metroNIDAZOLE IVPB 500 mg Volume: 100 ml; Route: IVPB; Rate: 200 ml/hr; Infused nj1 Over: 30 mins; Site: right forearm; 20:05 Follow up: Response: No adverse reaction; IV Status: Completed infusion; IV Intake: nj1 100ml 21:26 Drug: NS 0.9% IV 1000 ml Route: IV; Rate: 100 ml/hr; Site: right forearm; ha1 Medication: 23:53 VIS not applicable for this client. ha1 Intake: 19:00 IV: 500ml; Total: 500ml. nj1 20:05 IV: 100ml; Total: 600ml. nj1 20:30 IV: 2000ml; Total: 2600ml. nj1 Outcome: 20:10 Decision to Hospitalize by Provider. bs3 23:52 Admitted to Med/surg accompanied by tech, via stretcher, room 229, with chart, Report ha1 called to HOLLAND Campa 23:52 Condition: stable 23:52 Discharge instructions given to patient, family, Instructed on the need for admit, Demonstrated understanding of instructions. 23:54 Patient left the ED. ha1 Signatures: Dispatcher Med[facility] EDHI Reanna Soto RN RN Cherie Soto mb4 Shonda Quiles RN RN ha1 Todd Morales MD MD bs3 Belén Arnold RN RN nj1 Corrections: (The following items were deleted from the chart) 17:53 17:49 Acuity: NELLIE 3 hb hb 17:54 17:49 Chief complaint: EMS states: Sister called for unwitnessed fall, pt reports hb mechanical fall while ambulating to the bathroom, abrasions noted to right knee, denies other injuries. On scene BP 98/66, HR 108, SpO2 92% on RA, improved to 94% on 2LNC, T 103.1, Tylenol 1GM administered in route. hb 17:54 17:49 Initial Sepsis Screen: Does the patient meet any 2 criteria? RR > 20 per min. HR hb > 90 bpm. Yes Does the patient have a suspected source of infection? No. Patient's initial sepsis screen is negative. hb
[2023-02-09 20:21] LABS: Blood Morphology Comment NOT SEEN (NOT SEEN); Platelet Estimate ADEQ; White Blood Cell Scan OK (OK)
--- NOTE | 2023-02-09 20:21 | P.HP ---
Certification for Inpatient Patient admitted to: Inpatient With expected LOS: >2 Midnights Patient will require the following post-hospital care: None Practitioner: I am a practitioner with admitting privileges, knowledge of patient current condition, hospital course, and medical plan of care. Services: Services provided to patient in accordance with Admission requirements found in Title 42 Section 412.3 of the Code of Federal Regulations Patient History Date of Service: 02/09/23 Reason for admission: Septic Shock History of Present Illness: Mr. Jaeger is a 67 year old male with past medical history of Korsakoff Syndrome who presented to the emergency department s/p fall. His sister states that he had one episode of profuse diarrhea this afternoon and later he sustained an unwitnessed fall. He was tachycardic, tachypneic, and febrile upon arrival. His labs are significant for WBC 16, lactate 7.2, creatinine 1.89, chloride 112, CO2 16. CT did not reveal any acute findings in his head, neck, back, chest, abdomen, or pelvis. BP has been soft. He received IV fluids, ceftriaxone, and flagyl in the emergency department and will be admitted for further management. Allergies No Known Allergies Allergy (Verified 08/05/14 14:57) Home medications list reviewed: Yes Home Medications: Folic Acid 1 mg PO DAILY #90 tablet 04/21/20 Lactose-Reduced Food [Ensure Enlive] 237 ml PO TID #90 liquid 04/21/20 Thiamine HCl [Vitamin B-1*] 100 mg PO DAILY #90 tablet 04/21/20 - Past Medical/Surgical History Diabetic: No -: Korsakoff Syndrome -: Appendectomy -: Right total hip arthroplasty Psychosocial/ Personal History: Patient lives at home with his sister. - Family History Mother -: Heart disease, Hypertension, Diabetes - Social History Smoking Status: Never smoker Alcohol use: No CD- Drugs: No Caffeine use: Yes Place of Residence: Home Review of Systems General: Weakness Gastrointestinal: Diarrhea Physical Examination - Vital Signs Temperature: 98.5 F Blood Pressure: 91/63 Pulse: 81 Respirations: 20 Pulse Ox (%): 96 - Physical Exam General: Alert, In no apparent distress HEENT: Atraumatic, EOMI, Sclerae nonicteric Neck: Supple, 2+ carotid pulse no bruit Respiratory: Clear to auscultation bilaterally, Normal air movement Cardiovascular: Regular rate/rhythm, Normal S1 S2 Gastrointestinal: Normal bowel sounds, No tenderness Musculoskeletal: No tenderness Integumentary: No rashes Neurological: Normal speech, Normal affect - Studies Laboratory Data (last 24 hrs) 02/09/23 18:05: PT 13.5 H, INR 1.23, APTT 28.6 02/09/23 18:05: Sodium 139, Potassium 3.8, BUN 17, Creatinine 1.87 H, Glucose 103, Total Bilirubin 0.6, AST 42 H, ALT 39, Alkaline Phosphatase 155 H 02/09/23 18:05: WBC 16.30 H, Hgb 13.2 L, Hct 40.0, Plt Count 189 Assessment and Plan - Problems (Diagnosis) (1) Sepsis Current Visit: Yes Status: Acute Qualifiers: Sepsis type: sepsis due to unspecified organism Sepsis acute organ dysfunction status: with acute organ dysfunction Severe sepsis acute organ dysfunction type: acute renal failure Acute renal failure type: unspecified Severe sepsis shock status: with septic shock Qualified Code(s): A41.9 - Sepsis, unspecified organism; R65.21 - Severe sepsis with septic shock; N17.9 - Acute kidney failure, unspecified (2) Dehydration Current Visit: Yes Status: Acute (3) Korsakoff syndrome Current Visit: Yes Status: Chronic - Plan Patient is admitted for further management of dehydration and septic shock. No source of infection identified at this point, I suspect hypovolemic shock. Sister states patient does not drink a lot of water and had diarrhea today. Continue broad spectrum antibiotics for now and follow blood & urine culture. Obtain stool cultures & check for cdiff. No recent antibiotic use reported. IV hydration. Monitor and replete electrolytes per protocol. Reconcile and continue home medications. Lovenox for VTE prophylaxis. Full code. Discharge Plan: Home Plan to discharge in: Greater than 2 days - Advance Directives Does patient have a Living Will: No Does patient have a Durable POA for Healthcare: No - Code Status/Comfort Care Code Status Assessed: Yes Code Status: Full Code Physician Review: Patient Assessed, Agree with Above Assessment and Plan Critical Care: No Time Spent Managing Pts Care (In Minutes): 50
[2023-02-09 21:16] LABS: Specific Gravity 1.026 (1.005-1.030); Urine Bacteria <20 /HPF (<20); Urine Bilirubin 1+ (Negative); Urine Blood Negative (Negative); Urine Clarity Turbid (Clear); Urine Color Dark-Yellow (Yellow); Urine Glucose TRACE (Negative); Urine Mucus 3+ /HPF (None Seen); Urine Protein 2+ (Negative); Urine Urobilinogen 2+ (Normal); Urine WBC Clump Occasional /HPF (None Seen); Urine pH 5.5 (5.0-7.0)
[2023-02-09 21:28] LABS: Barbiturates NEGATIVE (NEGATIVE); Benzodiazepines NEGATIVE (NEGATIVE); Cocaine NEGATIVE (NEGATIVE); METHAMPHETAM NEGATIVE (NEGATIVE); Methadone NEGATIVE (NEGATIVE); Opiates NEGATIVE (NEGATIVE); Phencyclidine NEGATIVE (NEGATIVE); THC Cannibis NEGATIVE (NEGATIVE)
--- NOTE | 2023-02-09 21:29 | RAD REPORT ---
EXAM DESCRIPTION: CT - Chest Abd Pelvis Wo Con - 02/09/2023 9:17 pm CLINICAL HISTORY: Abdominal pain, diarrhea FEVER COMPARISON: Abdomen Pelvis W Contrast dated 04/16/2020; Head C Spine Mpr Wo Con dated 02/09/2023 TECHNIQUE: Thin axial CT images of the chest, abdomen, and pelvis, performed without IV contrast. Mu ltiplanar reformats were generated and reviewed. All CT scans are performed using dose optimization technique as appropriate and may include automated exposure control or mA/KV adjustment according to patient size. FINDINGS: The lungs are clear apart from bilateral dependent platelike atelectasis more pronounced o n the right. Small fat containing right posterior diaphragmatic hernia.No pleural or pericardial effu samantha.No intrathoracic adenopathy. The liver, spleen, pancreas, adrenal glands and kidneys are within normal limits. No bowel obstruction, free air, free fluid or abscess. Appendix is not well visualized, although with out inflammatory changes in its vicinity. No pathologic lymphadenopathy in the abdomen or pelvis. U rinary bladder is suboptimally distended, limiting evaluation. Nondisplaced right 4th to 6 healing rib fractures. No other acute osseous findings. . Streak artifac t related to right total hip arthroplasty hardware limits evaluation in the pelvis. IMPRESSION: Nondisplaced right 4th through sixth rib fractures, with signs of healing. No other acute abnormalities in the abdomen and pelvis.
[2023-02-09] MEDS ORDERED: FLUOXETINE 20 MG CAP PO ONE (23:12)
[2023-02-09] MEDS ORDERED: FOLIC ACID 1 MG TABLET PO ONE (23:12)
[2023-02-09] MEDS ORDERED: OLANZapine 10 MG TABLET PO ONE (23:12)
[2023-02-09] MEDS ORDERED: ACETAMINOPHEN 500 MG TAB PO PRN (23:12)
[2023-02-09] MEDS ORDERED: ONDANSETRON 4 MG/2 ML VIAL IV PRN (23:12)
--- NOTE | 2023-02-10 00:48 | P.INFCA ---
Sepsis Focused Assessment - Focused Assessment Complete? Sepsis Focused Assessment Completed?: Yes - Sepsis Screen Result Severe Sepsis: Positive Septic Shock: Negative - Evaluation Current stage of sepsis: Severe sepsis - Vital Signs Reviewed: Yes Temperature: 98 F Heart rate: 62 Blood Pressure: 96/62 Respiratory Rate: 20 O2 Sat by Pulse Oximetry: 98 - Examination Comments: sepsis reassessment complete
[2023-02-10 02:41] VITALS: BMI 28.2
[2023-02-10 03:22] LABS: Absolute Lymphocytes (CBC) 1.5 K/uL (0.7-4.9); Hematocrit 33.9 % (39.6-49.0); Lymphocytes % 6.9 % (15.3-44.8); MCV 87.3 fL (80-100); MPV 8.8 fL (7.6-11.3); RBC Red Blood Cell Count 3.88 M/uL (4.33-5.43)
[2023-02-10 03:44] LABS: Magnesium 1.9 mg/dL (1.6-2.4); Phosphorus 1.9 mg/dL (2.5-4.9); Potassium 4.6 mEq/L (3.5-5.1); Thyroid Stimulating Hormone 1.81 uIU/mL (0.358-3.740)
[2023-02-10 03:56] LABS: Blood Morphology Comment NOT SEEN (NOT SEEN); Platelet Estimate ADEQ
[2023-02-10] MEDS: NA CHLORIDE 0.9% 1,000 ML IV SCH ×2 (05:28→16:16)
[2023-02-10] MEDS: METRONIDAZOLE 500mg IVPB 500 MG/100 ML BAG IV SCH ×3 (05:30→16:16)
[2023-02-10] MEDS: THIAMINE HCL 100 MG TABLET PO SCH ×2 (05:35→09:08)
[2023-02-10] MEDS: ENOXAPARIN 40 MG/0.4 ML SQ SCH (09:08)
[2023-02-10 13:06] LABS: C.diff Antigen/Toxin Ag neg : Tox neg (NEG : NEG)
--- NOTE | 2023-02-10 15:16 | P.PN ---
Subjective Date of Service: 02/10/23 Chief Complaint: Septic Shock Patient states he is feeling better today. He reports no diarrhea today. He had 1 episode of fever last night. No more fever episodes today. Physical Examination - Vital Signs Temperature: 97.9 F Blood Pressure: 99/58 Pulse: 59 Respirations: 18 Pulse Ox (%): 98 - Studies Laboratory Data (last 24 hrs) 02/09/23 20:50: Lipase 8 L 02/09/23 18:05: PT 13.5 H, INR 1.23, APTT 28.6 02/09/23 18:05: Sodium 139, Potassium 3.8, BUN 17, Creatinine 1.87 H, Glucose 103, Total Bilirubin 0.6, AST 42 H, ALT 39, Alkaline Phosphatase 155 H 02/09/23 18:05: WBC 16.30 H, Hgb 13.2 L, Hct 40.0, Plt Count 189 Microbiology Data (last 24 hrs): 02/09/23 20:45 Nasopharnyx Influenza Type A Antigen Screen - Final 02/09/23 20:45 Nasopharnyx Influenza Type B Antigen Screen - Final Assessment And Plan - Current Problems (Diagnosis) (1) Diarrhea Current Visit: Yes Status: Acute (2) Wernicke encephalopathy syndrome Current Visit: Yes Status: Chronic (3) Septic shock Current Visit: Yes Status: Acute - Plan Physical Exam General: Alert, In no apparent distress HEENT: Atraumatic, EOMI, Sclerae nonicteric Neck: Supple, 2+ carotid pulse no bruit Respiratory: Clear to auscultation bilaterally, Normal air movement Cardiovascular: Regular rate/rhythm, Normal S1 S2 Gastrointestinal: Normal bowel sounds, No tenderness Musculoskeletal: No tenderness Integumentary: No rashes Neurological: Normal speech, Normal affect Plan: Leukocytosis is worse today. Patient is currently asymptomatic. Stool for C. difficile is negative. Continue aggressive antibiotics. Follow cultures Diet as tolerated Continue IV fluid. Follow stool studies.
[2023-02-10] MEDS ORDERED: CEFTRIAXONE 1,000 MG in NA CHLORIDE 0.9% 50 ML IVPB SCH (18:00)
[2023-02-11] MEDS: METRONIDAZOLE 500mg IVPB 500 MG/100 ML BAG IV SCH ×2 (00:26→08:01)
[2023-02-11 03:12] LABS: Absolute Lymphocytes (CBC) 2.1 K/uL (0.7-4.9); Lymphocytes % 15.3 % (15.3-44.8); MPV 8.9 fL (7.6-11.3); RBC Red Blood Cell Count 3.79 M/uL (4.33-5.43)
[2023-02-11 03:57] LABS: Phosphorus 2.3 mg/dL (2.5-4.9)
[2023-02-11 03:58] LABS: Magnesium 2.2 mg/dL (1.6-2.4); Potassium 3.7 mEq/L (3.5-5.1)
[2023-02-11] MEDS ORDERED: POTASSIUM CL SA 10 MEQ TAB PO ONE (06:18)
[2023-02-11] MEDS: POTASS/SODIUM PHOSPHATE 1 PKT POWD.PACK PO SCH ×3 (07:01→08:58)
[2023-02-11] MEDS: ENOXAPARIN 40 MG/0.4 ML SQ SCH (08:02)
[2023-02-11] MEDS: THIAMINE HCL 100 MG TABLET PO SCH (08:02)
[2023-02-11 08:21] VITALS: BP 146/77; TEMP 97.7
[2023-02-11 09:56] VITALS: O2SAT 97
--- NOTE | 2023-02-11 15:40 | P.DS ---
Admission Date: 02/09/23 Discharge Date: 02/11/23 Disposition: ROUTINE DISCHARGE Discharge Condition: FAIR Reason for Admission: Septic Shock - Problems (1) Diarrhea Status: Acute (2) Wernicke encephalopathy syndrome Status: Chronic (3) Septic shock Status: Acute Brief History of Present Illness: Mr. Jaeger is a 67 year old male with past medical history of Korsakoff Syndrome who presented to the emergency department s/p fall. His sister states that he had one episode of profuse diarrhea this afternoon and later he sustained an unwitnessed fall. He was tachycardic, tachypneic, and febrile upon arrival. His labs significant for WBC 16, lactate 7.2, creatinine 1.89, chloride 112, CO2 16. CT did not reveal any acute findings in his head, neck, back, chest, abdomen, or pelvis. BP has been soft. He received IV fluids, ceftriaxone, and flagyl in the emergency department. Patient admitted for further management. Hospital Course: Patient admitted to the medical floor and treated with aggressive antibiotics. Blood culture yielded no growth. Stool for C. difficile was negative. He had leukocytosis significantly improved. Patient was asymptomatic during the hospital stay. He was afebrile. He tolerated his diet. Vitals were stable. Cultures are negative. Patient is deemed stable for discharge. He is prescribed oral antibiotics to continue treatment for suspected infection. Vital Signs/Physical Exam: Temp Pulse Resp BP Pulse Ox 97.7 F 56 20 146/77 H 97 02/11/23 07:30 02/11/23 07:30 02/11/23 07:30 02/11/23 07:30 02/11/23 07:30 General: Alert, In no apparent distress, Oriented x3 HEENT: Mucous membr. moist/pink Neck: JVD not distended Respiratory: Clear to auscultation bilaterally, Normal air movement Cardiovascular: No edema, Regular rate/rhythm, Normal S1 S2 Gastrointestinal: Normal bowel sounds, Soft and benign, Non-distended Musculoskeletal: No swelling Integumentary: No cyanosis Neurological: Normal strength at 5/5 x4 extr Laboratory Data at Discharge: WBC 13.90 thou/uL (4.3-10.9) H 02/11/23 02:43 Hgb 10.7 g/dL (13.6-17.9) L 02/11/23 02:43 Hct 33.0 % (39.6-49.0) L 02/11/23 02:43 Plt Count 148 thou/uL (152-406) L 02/11/23 02:43 PT 13.5 SECONDS (9.5-12.5) H 02/09/23 18:05 INR 1.23 02/09/23 18:05 APTT 28.6 SECONDS (24.3-36.9) 02/09/23 18:05 Sodium 140 mEq/L (136-145) 02/11/23 02:43 Potassium 3.7 mEq/L (3.5-5.1) D 02/11/23 02:43 BUN 16 mg/dL (7-18) 02/11/23 02:43 Creatinine 1.14 mg/dL (0.70-1.30) 02/11/23 02:43 Glucose 106 mg/dL (74-106) 02/11/23 02:43 Phosphorus 2.3 mg/dL (2.5-4.9) L 02/11/23 02:43 Magnesium 2.2 mg/dL (1.6-2.4) 02/11/23 02:43 Total Bilirubin 0.6 mg/dL (0.2-1.0) 02/09/23 18:05 AST 42 U/L (15-37) H 02/09/23 18:05 ALT 39 U/L (16-61) 02/09/23 18:05 Alkaline Phosphatase 155 U/L (45-117) H 02/09/23 18:05 Triglycerides 147 mg/dL (<150) 02/10/23 02:14 Cholesterol 115 mg/dL (<200) 02/10/23 02:14 HDL Cholesterol 45 mg/dL (40-60) 02/10/23 02:14 Cholesterol/HDL Ratio 2.56 02/10/23 02:14 Lipase 8 U/L (13-75) L 02/09/23 20:50 Home Medications: Folic Acid 1 mg PO DAILY #90 tablet 04/21/20 Lactose-Reduced Food [Ensure Enlive] 237 ml PO TID #90 liquid 04/21/20 Thiamine HCl [Vitamin B-1*] 100 mg PO DAILY #90 tablet 04/21/20 Cefpodoxime Proxetil 200 mg PO BID #20 tab 02/11/23 Metronidazole 500 mg PO TID #15 tab 02/11/23 New Medications: Cefpodoxime Proxetil 200 mg PO BID #20 tab Metronidazole 500 mg PO TID #15 tab Diet: AHA Activity: Fall precautions Followup: Anya Em DO, DO [Primary Care Provider] - 1-2 Weeks (Call to schedule appointment.) Time spent managing pt's care (in minutes): 33
--- NOTE | 2023-02-12 10:19 | EKG ---
Test Date: 2023-02-09 Test Time: 20:04:59 Paste Maker: HIEN MEASUREMENT RESULTS: Intervals: Rate: 77 TX: 184 QRSD: 84 QT: 432 QTc: 488 [place]: P: 54 TX: 184 QRS: 52 T: 53 INTERPRETIVE STATEMENTS: Normal sinus rhythm Prolonged QT Abnormal ECG Compared to ECG 04/16/2020 20:47:24 No significant changes Electronically Signed On 02-12-23 10:14:12 CDT by Harman Hoff
== END 2023-02-11 10:40 | disposition home or self-care (01) | DRG 871 ==
LOC: ER 17:28 → ERHOLD 21:20 → 2ND 21:56
PROVIDERS: ADMIT Internal Medicine; ATTEND Internal Medicine
DX: A41.9 Sepsis, unspecified organism (principal); R65.21 Severe sepsis with septic shock; N17.9 Acute kidney failure, unspecified; E51.2 Wernicke's encephalopathy; E86.0 Dehydration; R19.7 Diarrhea, unspecified; W19.XXXA Unspecified fall, initial encounter; Z79.899 Other long term (current) drug therapy; Z20.822 Contact with and (suspected) exposure to COVID-19; Z82.49 Family history of ischemic heart disease and other diseases of the circulatory system; Z83.3 Family history of diabetes mellitus
CPT/HCPCS: 36415; 51702; 70450; 71045; 71250; 72125; 72170; 74176; 80048; 80053; 80061; 80307; 81001; 82077; 83605; 83690; 83735; 84100; 84439; 84443; 84484; 85025; 85610; 85730; 87040; 87086; 87088; 87177; 87209; 87324; 87425; 87635; 87804; 89055; 93005; 99285; J0696; J1650; J7030; J7040

== ENCOUNTER 2023-06-09 20:04 | Inpatient (IN) | payer OTHER ==
[2023-06-09] MEDS ORDERED: ACETAMINOPHEN 500 MG TAB ONE (20:34)
[2023-06-09 20:43] LABS: Absolute Lymphocytes (CBC) 1.1 K/uL (0.7-4.9); Hematocrit 39.9 % (39.6-49.0); Lymphocytes % 49.5 % (15.3-44.8); MCV 87.5 fL (80-100); Platelets 158 thou/uL (152-406); RBC Red Blood Cell Count 4.56 M/uL (4.33-5.43)
[2023-06-09 20:59] LABS: Albumin 3.1 g/dL (3.4-5.0); Bilirubin Total 0.9 mg/dL (0.2-1.0); Potassium 3.3 mEq/L (3.5-5.1); Protein, Total 7.8 g/dL (6.4-8.2)
[2023-06-09 21:08] LABS: Protime INR 1.12
[2023-06-09] MEDS ORDERED: VANCOMYCIN 1 GM/VIAL ONE (21:38)
[2023-06-09] MEDS ORDERED: NA CHLORIDE 0.9% 250 ML ONE (21:38)
[2023-06-09] MEDS ORDERED: CEFEPIME 2 GM VIAL ONE (21:38)
[2023-06-09] MEDS ORDERED: NA CHLORIDE 0.9% 100 ML ONE (21:39)
[2023-06-09] MEDS ORDERED: NA CHLORIDE 0.9% 1,000 ML ONE (21:39)
--- NOTE | 2023-06-09 21:41 | EDPHYS ---
Physician Documentation [facility] Name: Nikko Jaeger Age: 67 yrs Sex: Male : 1955 Arrival Date: 06/09/2023 Time: 20:04 Bed 5 Private MD: ED Physician Samir Mak HPI: 06/09 20:10 This 67 yrs old Male presents to ER via Unassigned with complaints of Chills. rt 20:10 Patient presents to the ED with chills, shaking that started just prior to arrival. EMS rt stated this temperature was about 99 degrees. Denies any other specific symptoms, denies any pain, difficulty breathing. Denies other acute complaints at this time, symptoms are moderate severity, no other aggravating alleviating factors.. Historical: - Allergies: 20:17 No Known Allergies; nj1 - PMHx: 20:17 Dementia; nj1 - Immunization history:: Adult Immunizations unknown. - Social history:: Smoking status: Patient reports the use of cigarette tobacco products, smokes one pack cigarettes per day. ROS: 20:10 Cardiovascular: Negative for chest pain, palpitations, and edema, Respiratory: Negative rt for shortness of breath, cough, wheezing, and pleuritic chest pain, Abdomen/GI: Negative for abdominal pain, nausea, vomiting, diarrhea, and constipation, MS/Extremity: Negative for injury and deformity, Skin: Negative for injury, rash, and discoloration, Neuro: Negative for headache, weakness, numbness, tingling, and seizure, Psych: Negative for depression, anxiety, suicide ideation, homicidal ideation, and hallucinations, 20:10 Constitutional: Positive for chills, fever, Exam: 20:10 Constitutional: This is a well developed, well nourished patient who is awake, alert, rt and in no acute distress. Head/Face: Normocephalic, atraumatic. Chest/axilla: Normal chest wall appearance and motion. Nontender with no deformity. No lesions are appreciated. Cardiovascular: Regular rate and rhythm with a normal S1 and S2. No gallops, murmurs, or rubs. Normal PMI, no JVD. No pulse deficits. Respiratory: Lungs have equal breath sounds bilaterally, clear to auscultation and percussion. No rales, rhonchi or wheezes noted. No increased work of breathing, no retractions or nasal flaring. Abdomen/GI: Soft, non-tender, with normal bowel sounds. No distension or tympany. No guarding or rebound. No evidence of tenderness throughout. Skin: Warm, dry with normal turgor. Normal color with no rashes, no lesions, and no evidence of cellulitis. MS/ Extremity: Pulses equal, no cyanosis. Neurovascular intact. Full, normal range of motion. Neuro: Awake and alert, GCS 15, oriented to person, place, time, and situation. Cranial nerves II-XII grossly intact. Motor strength 5/5 in all extremities. Sensory grossly intact. Cerebellar exam normal. Normal gait. Psych: Awake, alert, with orientation to person, place and time. Behavior, mood, and affect are within normal limits. 20:41 ECG was reviewed by the Attending Physician. rt Vital Signs: 20:11 BP 151 / 77; Pulse 112; Resp 18; Temp 100.6(O); Pulse Ox 96% on R/A; Weight 62.6 kg; nj1 Height 5 ft. 6 in. ; 21:55 BP 120 / 70; Pulse 105; Resp 18 S; Temp 99.4(O); Pulse Ox 96% on R/A; iw 23:18 BP 101 / 60; Pulse 94; Resp 20; Temp 99.8; Pulse Ox 96% on R/A; iw 20:11 Body Mass Index 22.27 (62.60 kg, 167.64 cm) nj1 MDM: 20:05 Patient medically screened. rt 21:41 Differential Diagnosis Sepsis, UTI, bacteremia, pneumonia. Data reviewed: vital signs, rt nurses notes. Consideration of Admission/Observation Patient was admitted/placed on observation. Management of patient was discussed with the following: Hospitalist: Agrees to admit. I considered the following discharge prescriptions or medication management in the emergency department Medications were administered in the Emergency Department. See MAR. Independent interpretation of the following test(s) in the Emergency Department X-Ray: My interpretation is No pneumothorax interpretation of x-ray images. Counseling: I had a detailed discussion with the patient and/or guardian regarding the historical points, exam findings, and any diagnostic results supporting the discharge/admit diagnosis. 06/09 20:06 Order name: Blood Culture Adult (2) rt 06/09 20:06 Order name: CBC with Diff rt 09/30 20:06 Order name: CMP; Complete Time: 21:06 rt 06/09 20:06 Order name: Lactate w/ 2H reflex if indic.; Complete Time: 21:06 rt 06/09 20:06 Order name: Protime (+inr); Complete Time: 21:23 rt 06/09 20:06 Order name: Ptt, Activated; Complete Time: 21:23 rt 06/09 20:06 Order name: Urinalysis w/ reflexes; Complete Time: 22:16 rt 06/09 20:08 Order name: SARS-COV-2 RT PCR; Complete Time: 20:54 rt 06/09 20:08 Order name: Influenza Screen (a \T\ B); Complete Time: 20:46 rt 06/09 21:24 Order name: Osmolality, Serum la 06/09 21:25 Order name: Glucose, Ancillary Testing; Complete Time: 21:30 EDMS 06/09 21:29 Order name: UAM la 06/09 22:10 Order name: Urine Culture EDMS 06/09 22:17 Order name: CBC Smear Scan EDMS 06/09 23:52 Order name: Lactate Sepsis 2 HR Follow-up EDMS 06/09 20:06 Order name: Chest Single View XRAY; Complete Time: 22:16 rt 06/09 21:24 Order name: CT Abd/Pelvis - Without Contrast; Complete Time: 22:16 nv1 06/09 20:06 Order name: EKG; Complete Time: 20:07 rt 06/09 20:06 Order name: Accucheck; Complete Time: 20:33 rt 06/09 20:06 Order name: Cardiac monitoring; Complete Time: 20:33 rt 06/09 20:06 Order name: EKG - Nurse/Tech; Complete Time: 20:33 rt 06/09 20:06 Order name: IV Saline Lock - Large Bore; Complete Time: 20:29 rt 06/09 20:06 Order name: Labs collected and sent; Complete Time: 20:29 rt 06/09 20:06 Order name: O2 Per Protocol; Complete Time: 20:29 rt 06/09 20:06 Order name: O2 Sat Monitoring; Complete Time: 20:29 rt 06/09 20:06 Order name: Vital Signs; Complete Time: 20:29 rt EC:41 Rate is 101 beats/min. Rhythm is regular, Sinus tachycardia with No ectopy. QRS [place] is rt Normal. [place] interval is normal. QRS interval is normal. QT interval is normal. No Q waves. Clinical impression: NSR w/ Non-specific ST/T Changes. Administered Medications: 20:30 Drug: Acetaminophen PO 1000 mg PO once Route: PO; bp 20:30 Drug: NS 0.9% IV 1000 ml IV at 1 bolus Per protocol; 1000 mL bolus Route: IV; Rate: 1 bp bolus; Site: left forearm; 21:30 Follow up: IV Status: Completed infusion iw 21:56 Drug: NS 0.9% IV 1000 ml IV at 1 bolus Per protocol; 1000 mL bolus Route: IV; Rate: 1 iw bolus; Site: left forearm; 23:00 Follow up: IV Status: Completed infusion iw 21:57 Drug: Cefepime IVPB 2 grams IVPB at 200 ml/hr once over 30 mins; (mix in NS 100 mL) iw Route: IVPB; Rate: 200 ml/hr; Infused Over: 30 mins; Site: left forearm; 22:25 Follow up: IV Status: Completed infusion iw 22:27 Drug: vancoMYCIN IVPB 1 grams IVPB once over 2 hrs Route: IVPB; Infused Over: 2 hrs; iw Site: left forearm; 06/10 00:04 Follow up: IV Status: Infusion continued upon admission iw Disposition Summary: 06/09/23 21:40 Hospitalization Ordered Notes: Hospitalization Status: Inpatient Admission rt Provider: Manpreet Parsons rt Location: Telemetry/[facility] (Inpatient) rt Condition: Fair rt Problem: new rt Symptoms: have improved rt Bed/Room Type: Standard rt Room Assignment: 215(06/09/23 22:25) Diagnosis - Severe sepsis with septic shock rt Forms: - Medication Reconciliation Form rt - SBAR form rt - Leadership Thank You Letter rt Critical care time excluding procedures: 06/09 21:44 Critical care time: Bedside Care: 30 minutes, Consultation: 5 minutes. Total time: 35 rt minutes Signatures: Dispatcher [employer] Teresa Hung RN HOLLAND iw Mahendra Dominguez, RESEARCH CONSULTANT-C RESEARCH CONSULTANT-Cla1 Leonor Saul RN RN cg Benjamin Lugo RN RN bp Samir Mak MD MD rt Belén Arnold RN RN nj1 Corrections: (The following items were deleted from the chart) 22:25 21:40 rt cg
--- NOTE | 2023-06-09 21:41 | ER ---
Nurse's Notes [facility] Name: Nikko Jaeger Age: 67 yrs Sex: Male : 1955 Arrival Date: 06/09/2023 Time: 20:04 Bed 5 Private MD: Diagnosis: Severe sepsis with septic shock Presentation: 06/09 20:11 Chief complaint: EMS states: Patients sister called EMS for shortness of breath. No nj1 shortness of breath observe/assessed by EMS, patient complaining of chills. Coronavirus screen: Client presents with at least one sign or symptom that may indicate coronavirus-19. Ebola Screen: Patient denies travel to an Ebola-affected area in the 21 days before illness onset. Initial Sepsis Screen: Does the patient meet any 2 criteria? HR > 90 bpm. No. Patient's initial sepsis screen is negative. Does the patient have a suspected source of infection? No. Patient's initial sepsis screen is negative. Risk Assessment: Do you want to hurt yourself or someone else? Patient reports no desire to harm self or others. Onset of symptoms was June 09, 2023. 20:11 Method Of Arrival: EMS: [facility] 20:11 Acuity: NELLIE 3 nj1 Triage Assessment: 20:18 General: Appears ill, Behavior is calm, cooperative, appropriate for age. Pain: Denies bp pain. Historical: - Allergies: 20:17 No Known Allergies; nj1 - PMHx: 20:17 Dementia; nj1 - Immunization history:: Adult Immunizations unknown. - Social history:: Smoking status: Patient reports the use of cigarette tobacco products, smokes one pack cigarettes per day. Screenin:18 [facility] ED Fall Risk Assessment (Adult) History of falling in the last 3 months, bp including since admission No falls in past 3 months (0 pts). Abuse screen: Denies threats or abuse. Denies injuries from another. Nutritional screening: No deficits noted. Tuberculosis screening: No symptoms or risk factors identified. Assessment: 20:18 General: SEE TRIAGE NOTE. bp 21:32 Reassessment: Patient appears in no apparent distress at this time. Patient and/or iw family updated on plan of care and expected duration. Pain level reassessed. Patient is alert, oriented x 3, equal unlabored respirations, skin warm/dry/pink. 22:56 Reassessment: attempt to call report ,no answer, unable to leave VM. iw Vital Signs: 20:11 BP 151 / 77; Pulse 112; Resp 18; Temp 100.6(O); Pulse Ox 96% on R/A; Weight 62.6 kg; nj1 Height 5 ft. 6 in. ; 21:55 BP 120 / 70; Pulse 105; Resp 18 S; Temp 99.4(O); Pulse Ox 96% on R/A; iw 23:18 BP 101 / 60; Pulse 94; Resp 20; Temp 99.8; Pulse Ox 96% on R/A; iw 20:11 Body Mass Index 22.27 (62.60 kg, 167.64 cm) nj1 ED Course: 20:05 Patient arrived in ED. rt 20:06 Samir Mak MD is Attending Physician. snw 20:06 Benjamin Lugo, HOLLAND is Primary Nurse. bp 20:17 Triage completed. nj1 20:18 Arm band placed on. nj1 20:18 Patient has correct armband on for positive identification. Bed in low position. Call bp light in reach. Side rails up X2. Adult w/ patient. 20:25 Inserted saline lock: 22 gauge in left antecubital area, using aseptic technique. Blood pf1 collected. 20:29 Influenza Screen (a \T\ B) Sent. pf1 20:29 SARS-COV-2 RT PCR Sent. pf1 20:30 CBC with Diff Sent. pf1 20:30 CMP Sent. pf1 20:30 Ptt, Activated Sent. pf1 20:30 Protime (+inr) Sent. pf1 20:30 Lactate w/ 2H reflex if indic. Sent. pf1 21:16 Blood Culture Adult (2) Sent. pf1 21:22 Chest Single View XRAY In Process Unspecified. EDMS 21:40 Manpreet Parsons MD is Hospitalizing Provider. rt 21:45 CT Abd/Pelvis - Without Contrast In Process Unspecified. EDMS 21:54 Urine collected: clean catch specimen, cloudy. iw 22:57 No provider procedures requiring assistance completed. Patient admitted, IV remains in iw place. Administered Medications: 20:30 Drug: Acetaminophen PO 1000 mg PO once Route: PO; bp 20:30 Drug: NS 0.9% IV 1000 ml IV at 1 bolus Per protocol; 1000 mL bolus Route: IV; Rate: 1 bp bolus; Site: left forearm; 21:30 Follow up: IV Status: Completed infusion iw 21:56 Drug: NS 0.9% IV 1000 ml IV at 1 bolus Per protocol; 1000 mL bolus Route: IV; Rate: 1 iw bolus; Site: left forearm; 23:00 Follow up: IV Status: Completed infusion iw 21:57 Drug: Cefepime IVPB 2 grams IVPB at 200 ml/hr once over 30 mins; (mix in NS 100 mL) iw Route: IVPB; Rate: 200 ml/hr; Infused Over: 30 mins; Site: left forearm; 22:25 Follow up: IV Status: Completed infusion iw 22:27 Drug: vancoMYCIN IVPB 1 grams IVPB once over 2 hrs Route: IVPB; Infused Over: 2 hrs; iw Site: left forearm; 06/10 00:04 Follow up: IV Status: Infusion continued upon admission iw Medication: 06/09 20:18 VIS not applicable for this client. bp Outcome: 21:40 Decision to Hospitalize by Provider. rt 06/10 00:02 Admitted to Med/surg accompanied by nurse, via stretcher, room 215, Report called to linda rodriguez Condition: good Discharge instructions given to patient, family, Instructed on the need for admit, Demonstrated understanding of instructions, 00:03 Patient left the ED. Signatures: Dispatcher [employer] EDMS Mago Dasilva, RESEARCH LEADER-C RESEARCH LEADER-Csnw Teresa San RN RN iw Peltier, Brian RN Samir Gupta MD MD rt Veronica Mohamud RN RN pf1 Belén Arnold RN RN nj1
[2023-06-09 22:04] LABS: Specific Gravity 1.013 (1.005-1.030); Urine Bacteria 20-50 /HPF (<20); Urine Bilirubin NEGATIVE (Negative); Urine Blood 3+ (OVER) (Negative); Urine Clarity Extremely Turbid (Clear); Urine Color Light-Orange (Yellow); Urine Glucose NEGATIVE (Negative); Urine Mucus Slight /HPF (None Seen); Urine Protein 1+ (Negative); Urine Urobilinogen Normal (Normal); Urine WBC Clump Rare /HPF (None Seen)
--- NOTE | 2023-06-09 22:08 | RAD REPORT ---
EXAM DESCRIPTION: Ketty Single View06/09/2023 9:20 pm CLINICAL HISTORY: fever COMPARISON: February 2023 FINDINGS: The lungs appear clear of acute infiltrate. The heart is normal size Small right roger diaphragmatic hernia IMPRESSION: No acute abnormalities displayed
--- NOTE | 2023-06-09 22:14 | RAD REPORT ---
EXAM DESCRIPTION: CT - Abdomen Pelvis Wo Contrast - 06/09/2023 9:43 pm CLINICAL HISTORY: Abdominal pain COMPARISON: 2019 TECHNIQUE: Computed axial tomography of the abdomen and pelvis was obtained. IV and oral contrast we re not requested. All CT scans are performed using dose optimization technique as appropriate and may include automated exposure control or mA/KV adjustment according to patient size. FINDINGS: The evaluation of solid organs, vessels, appendix and bowel is limited secondary to the l ack of contrast administration. Some of the images are degraded by motion artifact. Small right diaphragmatic hernia contains fat The liver, spleen, pancreas, adrenals and kidneys appear grossly normal. Appendix is not visualized. No secondary signs appendicitis. Right arthroplasty There is no evidence of diverticulitis. IMPRESSION: No acute abnormality is displayed.
[2023-06-09 22:16] LABS: Platelet Estimate ADEQ; White Blood Cell Scan OK (OK)
[2023-06-09 22:17] LABS: Blood Morphology Comment NOT SEEN (NOT SEEN)
--- NOTE | 2023-06-09 22:30 | P.HP ---
Certification for Inpatient Patient admitted to: Inpatient With expected LOS: >2 Midnights Patient will require the following post-hospital care: None Practitioner: I am a practitioner with admitting privileges, knowledge of patient current condition, hospital course, and medical plan of care. Services: Services provided to patient in accordance with Admission requirements found in Title 42 Section 412.3 of the Code of Federal Regulations Patient History Date of Service: 06/09/23 Reason for admission: Septic shock, UTI History of Present Illness: 67-year-old male with history of Warnicke Korsakoff, dementia presents to the emergency department chief complaint of chills. He was evaluated in the emergency department he was found to be tachycardic with low-grade fever, his labs were significant for white blood cell count 2.1 lactic acid 6.2 potassium 3.3 bicarb 20 creatinine 1.8 GFR 41 UA suggestive of urinary tract infection CT abdomen pelvis and chest x-ray both negative for acute findings. He is normotensive but meets criteria for septic shock given his SIRS criteria, lactate greater than 4 and source of infection with urinary tract infection. He was given vancomycin, cefepime in the ED, will need to be admitted for septic shock, UTI. Allergies No Known Allergies Allergy (Verified 08/05/14 14:57) Home Medications: Folic Acid 1 mg PO DAILY #90 tablet 04/21/20 Lactose-Reduced Food [Ensure Enlive] 237 ml PO TID #90 liquid 04/21/20 Thiamine HCl [Vitamin B-1*] 100 mg PO DAILY #90 tablet 04/21/20 Cefpodoxime Proxetil 200 mg PO BID #20 tab 02/11/23 Metronidazole 500 mg PO TID #15 tab 02/11/23 - Past Medical/Surgical History Diabetic: No -: Korsakoff Syndrome -: Dementia -: Appendectomy -: Right total hip arthroplasty Psychosocial/ Personal History: Patient lives at home with his sister. - Family History Mother -: Heart disease, Hypertension, Diabetes - Social History Smoking Status: Never smoker Alcohol use: Yes CD- Drugs: No Caffeine use: No Place of Residence: Home Review of Systems 10-point ROS is otherwise unremarkable General: Fever, Chills Physical Examination - Physical Exam General: Alert, In no apparent distress, Oriented x3 HEENT: Atraumatic, PERRLA, Mucous membr. moist/pink, EOMI, Sclerae nonicteric Neck: Supple, 2+ carotid pulse no bruit, No LAD, Without JVD or thyroid abnormality Respiratory: Clear to auscultation bilaterally, Normal air movement Cardiovascular: Regular rate/rhythm, Normal S1 S2 Gastrointestinal: Normal bowel sounds, No tenderness Musculoskeletal: No tenderness Integumentary: No rashes Neurological: Normal gait, Normal speech, Normal strength at 5/5 x4 extr, Normal tone, Normal affect Lymphatics: No axilla or inguinal lymphadenopathy - Studies Laboratory Data (last 24 hrs) 06/09/23 06/09/23 06/09/23 20:25 20:25 20:25 WBC 2.10 L Hgb 13.4 L Hct 39.9 Plt Count 158 PT 12.3 INR 1.12 APTT 28.8 Sodium 139 Potassium 3.3 L BUN 27 H Creatinine 1.80 H Glucose 98 Total Bilirubin 0.9 AST 13 L ALT 25 Alkaline Phosphatase 230 H Microbiology Data (last 24 hrs): 06/09/23 20:10 Nasopharnyx Influenza Type A Antigen Screen - Final 06/09/23 20:10 Nasopharnyx Influenza Type B Antigen Screen - Final Assessment and Plan - Plan Assessment: Septic shock secondary to urinary tract infection Wernicke-Korsakoff/dementia Plan: Septic shock secondary to urinary tract infection SIRS criteria present including leukocytosis, tachycardia, fever, leukopenia, source infection confirmed with urinary tract infection, lactate greater than 4. Given 30 cc/kg IV fluid bolus in ED, started antibiotics with cefepime, vancomycin. Repeat lactate pending. No hypotension. Blood cultures obtained. Wernicke Korsakoff/dementia Continue home meds. DVT PPX: Lovenox Code status: Full Discharge Plan: Home Plan to discharge in: Greater than 2 days - Advance Directives Does patient have a Living Will: No Does patient have a Durable POA for Healthcare: No - Code Status/Comfort Care Code Status Assessed: Yes (Full code) Critical Care: No Time Spent Managing Pts Care (In Minutes): 55
[2023-06-10] MEDS ORDERED: VANCOMYCIN 1 GM in NA CHLORIDE 0.9% 250 ML IVPB SCH ×2
[2023-06-10] MEDS ORDERED: ACETAMINOPHEN 500 MG TAB PO PRN
[2023-06-10] MEDS ORDERED: ONDANSETRON 4 MG/2 ML VIAL IV PRN
[2023-06-10 00:06] VITALS: BMI 27.5
[2023-06-10] MEDS: NA CHLORIDE 0.9% 1,000 ML IV SCH ×3 (00:21→18:51)
[2023-06-10] MEDS ORDERED: VANCOMYCIN 500 MG in NA CHLORIDE 0.9% 100 ML IVPB ONE (01:00)
[2023-06-10 04:40] LABS: Absolute Lymphocytes (CBC) 0.8 K/uL (0.7-4.9); Hematocrit 33.4 % (39.6-49.0); Lymphocytes % 3.6 % (15.3-44.8); MCV 87.4 fL (80-100); MPV 8.7 fL (7.6-11.3); Platelets 151 thou/uL (152-406); RBC Red Blood Cell Count 3.82 M/uL (4.33-5.43)
[2023-06-10 04:56] LABS: Albumin 2.3 g/dL (3.4-5.0); Bilirubin Total 0.6 mg/dL (0.2-1.0); Magnesium 1.8 mg/dL (1.6-2.4); Phosphorus 1.8 mg/dL (2.5-4.9); Potassium 3.6 mEq/L (3.5-5.1); Protein, Total 5.8 g/dL (6.4-8.2); Thyroid Stimulating Hormone 1.94 uIU/mL (0.358-3.740)
[2023-06-10 05:32] LABS: Blood Morphology Comment NOT SEEN (NOT SEEN); Platelet Estimate ADEQ; Toxic Granulation 1+
[2023-06-10] MEDS: ENOXAPARIN 40 MG/0.4 ML SQ SCH (08:53)
[2023-06-10] MEDS: FOLIC ACID 1 MG TABLET PO SCH (08:53)
[2023-06-10] MEDS: THIAMINE HCL 100 MG TABLET PO SCH (08:53)
[2023-06-10] MEDS ORDERED: LACTOSE REDUCED FOOD PO SCH (09:00)
[2023-06-10] MEDS ORDERED: CEFEPIME 1 GM in NA CHLORIDE 0.9% 100 ML IV SCH ×2 (09:00→21:00)
--- NOTE | 2023-06-10 09:56 | P.PN ---
Subjective Date of Service: 06/10/23 Chief Complaint: Septic shock, UTI Subjective: Improving (Patient is 67 years of age was admitted with possible sepsis does not recall the events precipitating his admission currently has no complaints he has Wernicke's syndrome) Review of Systems Unremarkable Physical Examination - Vital Signs Temperature: 97.4 F Blood Pressure: 96/57 Pulse: 59 Respirations: 20 Pulse Ox (%): 97 - Physical Exam General: Alert, Oriented x3 Respiratory: Clear to auscultation bilaterally Cardiovascular: No edema, Regular rate/rhythm, Abnormal S3 - Studies Laboratory Data (last 24 hrs) 06/09/23 06/09/23 06/09/23 20:25 20:25 20:25 WBC 2.10 L Hgb 13.4 L Hct 39.9 Plt Count 158 PT 12.3 INR 1.12 APTT 28.8 Sodium 139 Potassium 3.3 L BUN 27 H Creatinine 1.80 H Glucose 98 Total Bilirubin 0.9 AST 13 L ALT 25 Alkaline Phosphatase 230 H Microbiology Data (last 24 hrs): 06/09/23 20:10 Nasopharnyx Influenza Type A Antigen Screen - Final 06/09/23 20:10 Nasopharnyx Influenza Type B Antigen Screen - Final Assessment And Plan - Current Problems (Diagnosis) (1) Sepsis Current Visit: No Status: Acute Plan: Patient is 67 years of age admitted with sepsis is likely a urinary tract infection with renal dysfunction White count is elevated creatinine lactic acid is decreasing urinalysis is very abnormal DC vancomycin continue with cefepime for now I will also increase the rate of his IV fluid Qualifiers: Sepsis type: sepsis due to unspecified organism Sepsis acute organ dysfunction status: with acute organ dysfunction Severe sepsis acute organ dysfunction type: acute renal failure Acute renal failure type: unspecified Severe sepsis shock status: with septic shock Qualified Code(s): A41.9 - Sepsis, unspecified organism; R65.21 - Severe sepsis with septic shock; N17.9 - Acute kidney failure, unspecified
[2023-06-10] MEDS ORDERED: NA CHLORIDE 0.9% 1,000 ML IV SCH ×2 (09:57→14:24)
[2023-06-10] MEDS ORDERED: SODIUM CHL 0.9% 1000 ML BAG IV ONE (10:11)
--- NOTE | 2023-06-10 14:30 | P.CNS ---
Date of Consult: 06/10/23 Reason for Consult: TOM Requesting Physician: Mahendra Dominguez Chief Complaint: Septic shock, UTI History of Present Illness: Pt is a 67-year-old male with some reports of dementia who presented to the ER with malaise and some chills. He reports his was concerned and pushed him to go. In the ER he was febrile and had other SIRS criteria as well as abnormal UA and pyuria. Pt denies abdominal pain or dysuria or hematuria but he acknowledges some reduced UOP although renal function improving with hydration. Allergies No Known Allergies Allergy (Verified 08/05/14 14:57) Home Medications: Folic Acid 1 mg PO DAILY #90 tablet 04/21/20 Lactose-Reduced Food [Ensure Enlive] 237 ml PO TID #90 liquid 04/21/20 Thiamine HCl [Vitamin B-1*] 100 mg PO DAILY #90 tablet 04/21/20 Cefpodoxime Proxetil 200 mg PO BID #20 tab 02/11/23 Metronidazole 500 mg PO TID #15 tab 02/11/23 - Past Medical/Surgical History Diabetic: No -: Korsakoff Syndrome -: Dementia -: Appendectomy -: Right total hip arthroplasty Psychosocial/ Personal History: Patient lives at home with his sister. - Family History Mother Medical History: Heart disease, Hypertension, Diabetes - Social History Smoking Status: Current every day smoker Alcohol use: No CD- Drugs: No Caffeine use: Yes Place of Residence: Home Review of Systems General: Fever, Malaise Eyes: Unremarkable ENT: Unremarkable Respiratory: Unremarkable Cardiovascular: Unremarkable Gastrointestinal: Unremarkable Genitourinary: As per HPI Musculoskeletal: Unremarkable Integumentary: Unremarkable Neurological: As per HPI, Unremarkable Physical Examination Temp Pulse Resp BP Pulse Ox 97.7 F 66 18 103/57 L 96 06/10/23 12:00 06/10/23 12:00 06/10/23 12:00 06/10/23 12:00 06/10/23 12:00 General: Alert, Cooperative HEENT: Atraumatic, Normocephalic Neck: Supple Respiratory: Clear to auscultation bilaterally, Normal air movement Cardiovascular: No edema, Regular rate/rhythm, Normal S1 S2 Gastrointestinal: Non-distended, No tenderness Musculoskeletal: No contractures, No tenderness Integumentary: No rashes, No tenderness/swelling Neurological: Normal speech, Normal tone, Normal affect Laboratory Data (last 24 hrs) 06/09/23 06/09/23 06/09/23 20:25 20:25 20:25 WBC 2.10 L Hgb 13.4 L Hct 39.9 Plt Count 158 PT 12.3 INR 1.12 APTT 28.8 Sodium 139 Potassium 3.3 L BUN 27 H Creatinine 1.80 H Glucose 98 Total Bilirubin 0.9 AST 13 L ALT 25 Alkaline Phosphatase 230 H Conclusions/Impression: A/P) 1. Stage 1 TOM in the setting of hypotension, volume depletion, complicated UTI, other. 2. He has had evidence of prior Stage 1 TOM this summer in February on review of labs in the EMR but no other specific reports of CKD 3. Cont IVF hydration with NS IVF, will lower rate however 4. Complicated UTI, site unspecified. imaging on CT did not show any hydro, stones, retention, prostatitis or other. Abnormal UA with pyuria, f/u cultures. Cont Abx 5. Hypotension, in the setting of above mentioned, improved. F/u blood cultures 6. Lactic acidosis 2nd to type A, resolved 7. Hypophosphatemia, abnormality of albumin -possible underlying malnutrition, moderate -obtain additional hx thru family. Will order phos supplementation
--- NOTE | 2023-06-10 14:41 | EKG ---
Test Date: 2023-06-09 Test Time: 20:39:14 Layer Out: MARIBEL MEASUREMENT RESULTS: Intervals: Rate: 101 SD: 176 QRSD: 80 QT: 394 QTc: 510 [place]: P: 64 SD: 176 QRS: 66 T: -71 INTERPRETIVE STATEMENTS: Sinus tachycardia ST & T wave abnormality, consider inferior ischemia ST & T wave abnormality, consider anterolateral ischemia Abnormal ECG Compared to ECG 02/09/2023 20:04:59 ST (T wave) deviation now present Possible ischemia now present Sinus rhythm no longer present Prolonged QT interval no longer present Electronically Signed On 06-10-23 14:40:30 CDT by Ronni Razo
[2023-06-10] MEDS: POTASS/SODIUM PHOSPHATE 1 PKT POWD.PACK PO SCH ×2 (15:32→20:27)
[2023-06-11 03:07] LABS: Hematocrit 31.2 % (39.6-49.0); Lymphocytes % 15.3 % (15.3-44.8); MCV 87.9 fL (80-100); MPV 8.9 fL (7.6-11.3); Platelets 140 thou/uL (152-406); RBC Red Blood Cell Count 3.55 M/uL (4.33-5.43)
[2023-06-11 03:31] LABS: Albumin 2.2 g/dL (3.4-5.0); Bilirubin Total 0.4 mg/dL (0.2-1.0); Magnesium 1.8 mg/dL (1.6-2.4); Phosphorus 2.5 mg/dL (2.5-4.9); Potassium 3.7 mEq/L (3.5-5.1); Protein, Total 5.8 g/dL (6.4-8.2)
--- NOTE | 2023-06-11 05:23 | P.PN ---
Date of Service: 06/11/23 Subjective: Patient is doing well no new complaints. Clinical symptoms are stable. Physical Exam: Vitals: reviewed GEN: Alert, oriented, NAD HEENT: WNL CV: Regular rate & rhythm, no edema Pulm: Nonlabored respiraitons, clear bilaterally ABD: Soft, nontender, nondistended Neuro: No focal deficits Problem List: Septic shock secondary to UTI TOM Hypophosphatemia Wernicke-Korsakoff/dementia PLAN 1. Continue IV fluids 2. Continue IV antibiotics 3. Monitor neurologic status 4. Nutritional status intravenously 5. GI DVT prophylaxis
[2023-06-11] MEDS: NA CHLORIDE 0.9% 1,000 ML IV SCH ×3 (05:48→20:21)
[2023-06-11] MEDS: FOLIC ACID 1 MG TABLET PO SCH (08:25)
[2023-06-11] MEDS: ENOXAPARIN 40 MG/0.4 ML SQ SCH (08:25)
[2023-06-11] MEDS: THIAMINE HCL 100 MG TABLET PO SCH (08:26)
[2023-06-11] MEDS ORDERED: VANCOMYCIN 1.5 GM in NA CHLORIDE 0.9% 500 ML IVPB SCH (10:00)
[2023-06-11] MEDS: CEFEPIME 2 GM in NA CHLORIDE 0.9% 100 ML IV SCH ×2 (10:14→20:07)
--- NOTE | 2023-06-11 21:54 | P.PN ---
Date of Service: 06/11/23 Vital Signs Temp Pulse Resp BP Pulse Ox 97.3 F 60 18 150/71 H 96 06/11/23 20:00 06/11/23 20:00 06/11/23 20:00 06/11/23 20:00 06/11/23 20:00 Medications Acetaminophen (Acetaminophen 500 Mg Tab) 500 mg PO Q4HP PRN PRN Reason: TEMP > 100' F Enoxaparin Sodium (Enoxaparin 40 Mg/0.4 Ml) 40 mg SQ DAILY [facility] Last Admin: 06/11/23 08:25 Dose: 40 mg Folic Acid (Folic Acid 1 Mg Tablet) 1 mg PO DAILY [facility] Last Admin: 06/11/23 08:25 Dose: 1 mg Sodium Chloride (Ns 1000 Ml Ivbag) 1,000 mls @ 100 mls/hr IV .Q10H [facility] Last Admin: 06/11/23 20:21 Dose: 1,000 mls Cefepime HCl 2 gm/ Sodium (Chloride) 100 mls @ 200 mls/hr IV Q12HR [facility]; Protocol Last Admin: 06/11/23 20:07 Dose: 100 mls Ondansetron HCl (Ondansetron 4 Mg/2 Ml Vial) 4 mg IV Q6HP PRN PRN Reason: NAUSEA / VOMITING Sodium Chloride (Flush Normal Saline 10 Ml) 10 ml IV BID [facility] Last Admin: 06/11/23 20:07 Dose: 10 ml Thiamine HCl (Thiamine Hcl 100 Mg Tablet) 100 mg PO DAILY [facility] Last Admin: 06/11/23 08:26 Dose: 100 mg Microbiology Results 06/09/23 21:54 Clean Catch Urine [place] Count - Preliminary >100,000 CFU/ML. 06/09/23 21:54 Clean Catch Urine - Preliminary 06/09/23 21:10 Blood - Blood Aerobic Blood Culture - Preliminary No growth in 24 hours. 06/09/23 21:10 Blood - Blood Anaerobic Blood Culture - Preliminary No growth in 24 hours. 06/09/23 20:25 Blood - Blood Aerobic Blood Culture - Preliminary No growth in 24 hours. 06/09/23 20:25 Blood - Blood Anaerobic Blood Culture - Preliminary No growth in 24 hours. 06/09/23 20:10 Nasopharnyx Influenza Type A Antigen Screen - Final 06/09/23 20:10 Nasopharnyx Influenza Type B Antigen Screen - Final Assessment/ Plan: Nephrology No dyspnea No chest pain No acute events overnight Vitals, medications, blood work and imaging reviewed in the chart. NAD. NCAT. MMM. Neck supple. Normal respiratory effort. RRR. Abd ND. No C/C. LE Edema none. No rash. AAO. Normal speech. Stage I TMO likely due to hypovolemia CKD III with Proteinuria -No NSAIDs -Change IVF to 1/2NS Hypoalbuminemia -Encourage nutrition Anemia in chronic illness -Monitor H&H Acute Cystitis Septic Shock -Continue Abx Hospitalist note reviewed
[2023-06-11] MEDS: NACHLORIDE 0.45% 1,000 ML IV SCH (22:26)
[2023-06-12 07:10] LABS: Absolute Lymphocytes (CBC) 2.1 K/uL (0.7-4.9); Hematocrit 32.7 % (39.6-49.0); Lymphocytes % 19.7 % (15.3-44.8); MCV 87.7 fL (80-100); Platelets 142 thou/uL (152-406); RBC Red Blood Cell Count 3.73 M/uL (4.33-5.43)
[2023-06-12 07:24] LABS: Albumin 2.4 g/dL (3.4-5.0); Bilirubin Total 0.4 mg/dL (0.2-1.0); Phosphorus 2.7 mg/dL (2.5-4.9); Potassium 3.9 mEq/L (3.5-5.1); Protein, Total 6.2 g/dL (6.4-8.2)
[2023-06-12] MEDS: NACHLORIDE 0.45% 1,000 ML IV SCH (08:00)
[2023-06-12] MEDS: THIAMINE HCL 100 MG TABLET PO SCH (08:02)
[2023-06-12] MEDS: FOLIC ACID 1 MG TABLET PO SCH (08:02)
[2023-06-12] MEDS: CEFEPIME 2 GM in NA CHLORIDE 0.9% 100 ML IV SCH (08:02)
[2023-06-12] MEDS: ENOXAPARIN 40 MG/0.4 ML SQ SCH (08:03)
[2023-06-12 12:06] VITALS: BP 149/79; TEMP 97.7; O2SAT 98
== END 2023-06-12 14:45 | disposition home or self-care (01) | DRG 871 ==
LOC: ER 20:04 → 2ND 22:18
PROVIDERS: ADMIT Internal Medicine Sleep Medicine; ATTEND Hospitalist
DX: A41.9 Sepsis, unspecified organism (principal); R65.21 Severe sepsis with septic shock; N17.9 Acute kidney failure, unspecified; E87.20 Acidosis, unspecified; N30.00 Acute cystitis without hematuria; F04 Amnestic disorder due to known physiological condition; E86.9 Volume depletion, unspecified; E83.39 Other disorders of phosphorus metabolism; N18.30 Chronic kidney disease, stage 3 unspecified; D63.8 Anemia in other chronic diseases classified elsewhere; F03.90 Unspecified dementia, unspecified severity, without behavioral disturbance, psychotic disturbance, mood disturbance, and anxiety; F17.210 Nicotine dependence, cigarettes, uncomplicated; Z90.49 Acquired absence of other specified parts of digestive tract; Z96.641 Presence of right artificial hip joint
CPT/HCPCS: 36415; 71045; 74176; 80053; 81001; 82947; 83605; 83735; 83930; 84100; 84439; 84443; 85025; 85610; 85730; 87040; 87077; 87086; 87088; 87186; 87635; 87804; 93005; 96361; 96365; 96367; 99285; J0692; J1650; J7030; J7040; J7050